=== PATIENT | male | born 1975 | race Caucasian/White ===

== ENCOUNTER 2017-04-13 13:22 | Inpatient (IN) | payer BC ==
[~2017-04-13] VITALS: Ht 188 cm; Wt 95.4 kg
[~2017-04-13 13:22] MED LIST: ASPI81TA28 PO; DOXY100C2 PO; GLC/500 PO; GLIM2TAB2 PO; LOSA1TAB38 PO
[2017-04-13 13:38] VITALS: BMI 27.0
[2017-04-13] MEDS ORDERED: SODIUM CHLORIDE 0.9% 500ML 500 ML IV ONE (13:50)
--- NOTE | 2017-04-13 13:54 | Endo History and Physical ---
History & Physical Date of Service: Apr 13, 2017. Chief Complaint: Referring Physician: History of Present Illness melena Past Surgical History Hx Cardiac Surgery: No Hx Internal Defibrillator: No Hx Pacemaker: No Hx Abdominal Surgery: No Hx of Implantable Prosthesis: No Hx Post-Op Nausea and Vomiting: No Hx Cancer Surgery: No Hx Thoracic Surgery: No Hx Orthopedic: No Hx Urinary Tract Surgery: No Family History None Social History Smoking Status: Never Smoker Hx Substance Use: No Hx Alcohol Use: No Allergies Coded Allergies: No Known Allergies (Unverified , 02/26/16) Current Medications Reported Home Medications Medications Dose Route/Sig Max Daily Dose Days Date Category Vibramycin (Doxycycline Hyclate) 100 Mg Cap 100 Mg PO BID 21 02/26/16 Rx Glimepiride 2 Mg Tab 2 Mg PO DAILY 90 02/26/16 Reported Aspirin Ec (Aspirin) 81 Mg Tab 81 Mg PO DAILY 02/26/16 Reported Cozaar (Losartan Potassium) 100 Mg Tab 100 Mg PO DAILY 02/26/16 Reported Glucophage (Metformin Hcl) 500 Mg Tab 500 Mg PO BID 02/26/16 Reported Vital Signs Weight (Kilograms): 97 Height (Feet): 6 Height (Inches): 2 Physical Exam General Appearance: WD/WN, no apparent distress Respiratory/Chest: Auscultation: breath sounds normal Cardiovascular: Heart Auscultation: RRR Abdomen: Bowel Sounds: normal Inspection & Palpation: soft, non-distended, no tenderness, guarding & rebound Assessment and Plan EGD/ possible bx/treatment of bleeding
[2017-04-13] MEDS ORDERED: PRLSR20 PO (14:04)
[2017-04-13] MEDS ORDERED: MIDAZOLAM HCL 1 MG/ML 2ML VIAL ONE (14:14)
[2017-04-13] MEDS ORDERED: LIDOCAINE HCL 2% 2 ML VIAL (20MG/ML) ONE (14:14)
[2017-04-13] MEDS ORDERED: PROPOFOL IV EMULSION 10 MG/ML 20 ML VIAL IV ONE (14:14)
--- NOTE | 2017-04-13 14:47 | Discharge Instructions ---
Endoscopy Patient Instructions Date / Procedure(s) Performed Apr 13, 2017. EGD Allergy Information Coded Allergies: No Known Allergies (Unverified , 02/26/16) Discharge Date / Findings Apr 13, 2017. portal HTN with muld portal gastrpoathy. erosive esophagitis in varius points in esophagus. Grade 1 varices esophgeeal Medication Instructions Stopped Medication(s): metformin Restart Stopped Medication(s): Reported Home Medications Medications Dose Route/Sig Max Daily Dose Days Date Category Prilosec (Omeprazole) 20 Mg Capcr 20 Mg PO DAILY 04/13/17 Reported Vibramycin (Doxycycline Hyclate) 100 Mg Cap 100 Mg PO BID 02/26/16 Rx Glimepiride 2 Mg Tab 2 Mg PO DAILY 02/26/16 Reported Aspirin Ec (Aspirin) 81 Mg Tab 81 Mg PO DAILY 02/26/16 Reported Cozaar (Losartan Potassium) 100 Mg Tab 100 Mg PO DAILY 02/26/16 Reported Glucophage (Metformin Hcl) 500 Mg Tab 500 Mg PO BID 02/26/16 Reported admit pt octreotide gtt tentative repeat of EGD +/- colon tomorrow Reported Home Medications Medications Dose Route/Sig Max Daily Dose Days Date Category Prilosec (Omeprazole) 20 Mg Capcr 20 Mg PO DAILY 04/13/17 Reported Vibramycin (Doxycycline Hyclate) 100 Mg Cap 100 Mg PO BID 02/26/16 Rx Glimepiride 2 Mg Tab 2 Mg PO DAILY 02/26/16 Reported Aspirin Ec (Aspirin) 81 Mg Tab 81 Mg PO DAILY 02/26/16 Reported Cozaar (Losartan Potassium) 100 Mg Tab 100 Mg PO DAILY 02/26/16 Reported Glucophage (Metformin Hcl) 500 Mg Tab 500 Mg PO BID 02/26/16 Reported Provider Instructions Activity Restrictions - No exercising or heavy lifting for 24 hours. - Do not drink alcohol the day of the procedure. - Do not drive a car or operate machinery until the day after the procedure. - Do not make any important decisions or sign important papers in 24 hours after the procedure. Following Day: - Return to full activity which may include returning to work/school. Diet Start your diet with liquids and light foods (jello, soup, juice, toast). Then eat your usual diet if not nauseated. Treatment For Common After Affects For mild abdominal pain, bloating, or excessive gas: - Rest - Eat lightly - Lie on right side Follow-Up Information Follow-up with Dr. Rosey Hu MD as scheduled Anesthesia Information What You Should Know You have had a procedure that required some medicine to reduce anxiety and discomfort. This treatment is called moderate sedation. After receiving the treatment, you may be sleepy, but you will be able to breathe on your own. The effects of the treatment may last for several hours. Follow these instructions along with Activity/Diet recommendations noted above: * Do NOT do anything where dizziness or clumsiness would be dangerous. * Rest quietly at home today, then you can be up and about tomorrow. * Have a responsible person stay with you the rest of today. * You may have had an I.V. today. If so, you may take the dressing off later today. Recommendations Call your doctor if: * Trouble breathing * Continuous vomiting for more than 24 hours * Temperature above 101 degrees * Severe abdominal pain or bloating * Pain not relieved by pain medicine ordered * There is increased drainage or redness from any incision * A large amount of rectal bleeding greater than 2-3 tablespoons. (If you had a polyp/s removed or have hemorrhoids, a small amount of blood - from the rectum is to be expected.) * You have any unanswered questions or concerns. IN THE EVENT OF A SERIOUS EMERGENCY, GO TO THE NEAREST EMERGENCY ROOM Your discharge instructions were prepared by provider Ariel Grigsby. Patient Instructions Signature Page Rich Mohamud Patient (or Guardian) Signature/Date: I have read and understand the instructions given to me by my caregivers. Caregiver/RN/Doctor Signature/Date: The above-named patient and/or guardian has received patient instructions on this date. + Original Patient Signature Page (only) stays with chart. Please make copy for patient.
[2017-04-13] MEDS ORDERED: OCTREOTIDE IV BOLUS & DRIP IV STA (14:52)
[2017-04-13] MEDS ORDERED: PANTOprazole INJ 40 MG in SYRINGE 0 ML IV SCH (15:00)
[2017-04-13] MEDS ORDERED: ONDANSETRON INJ 2 MG/ML 2 ML VIAL IV PRN (15:00)
[2017-04-13] MEDS ORDERED: GLUCOSE 40% GEL 15 GM TUBE PO PRN (15:15)
[2017-04-13] MEDS ORDERED: GLUCOSE 10 TABS/TUBE PO PRN (15:15)
[2017-04-13] MEDS ORDERED: DEXTROSE 50% 50 ML SYR IV PRN (15:15)
[2017-04-13] MEDS ORDERED: OCTREOTIDE ACETATE INJ 100 MCG in SYR 9 ML PHA PREPARED IV SCH (15:15)
[2017-04-13] MEDS ORDERED: GLUCAGON FOR INJ 1 MG VIAL SQ PRN (15:15)
--- NOTE | 2017-04-13 15:18 | Anesthesiology Progress Note ---
Anesthesia Post Op Note Date & Time Apr 13, 2017 at 15:18 Vital Signs Pain Intensity: 0 Vital Signs Past 12 Hours Date Time Temp Pulse Resp B/P (MAP) Pulse Ox O2 Delivery O2 Flow Rate FiO2 04/13/17 15:10 76 20 140/92 (108) 95 Room Air 04/13/17 14:55 78 18 130/72 (91) 100 Room Air 04/13/17 14:35 75 14 135/85 (102) 98 Room Air 04/13/17 13:56 36.9 77 20 135/85 (102) 98 Room Air Notes Mental Status: alert / awake / arousable, participated in evaluation Pt Amnestic to Procedure: Yes Nausea / Vomiting: adequately controlled Pain: adequately controlled Airway Patency, RR, SpO2: stable & adequate BP & HR: stable & adequate Hydration State: stable & adequate Anesthetic Complications: no major complications apparent
--- NOTE | 2017-04-13 15:26 | GI REPORT ---
Procedure Date: 04/13/2017 2:06 PM Procedure: Upper GI endoscopy Indications: Melena Medicines: Propofol per Anesthesia Complications: No immediate complications. Estimated Blood Loss: Estimated blood loss: none. Procedure: Pre-Anesthesia Assessment: - Prior to the procedure, a History and Physical was performed, and patient medications and allergies were reviewed. The patient's tolerance of previous anesthesia was also reviewed. The risks and benefits of the procedure and the sedation options and risks were discussed with the patient. All questions were answered, and informed consent was obtained. Prior Anticoagulants: The patient has taken no previous anticoagulant or antiplatelet agents. ASA Grade Assessment: III - A patient with severe systemic disease. After reviewing the risks and benefits, the patient was deemed in satisfactory condition to undergo the procedure. After obtaining informed consent, the endoscope was passed under direct vision. Throughout the procedure, the patient's blood pressure, pulse, and oxygen saturations were monitored continuously. The scope was introduced through the mouth, and advanced to the third part of duodenum. The upper GI endoscopy was accomplished without difficulty. The patient tolerated the procedure well. Findings: LA Grade C (one or more mucosal breaks continuous between tops of 2 or more mucosal folds, less than 75% circumference) esophagitis with no bleeding was found 36 to 40 cm from the incisors. Diffuse spontaneous mucosal sclerosis was found in the middle third of the esophagus and in the lower third of the esophagus. Three columns of non-bleeding grade I varices were found in the middle third of the esophagus and in the lower third of the esophagus, 36 to 40 cm from the incisors. They were 3 mm in largest diameter. with peptic appearing superficial ulcers scattered throughout lower esophagus. were evident. Mild portal hypertensive gastropathy was found in the gastric fundus and in the gastric body. The exam of the stomach was otherwise normal. The examined duodenum was normal. The cardia and gastric fundus were normal on retroflexion. Retained gastric contents are not identified on this exam. Impression: - LA Grade C reflux esophagitis. - Post-sclerotherapy appearance in the middle third of the esophagus and in the lower third of the esophagus. - Non-bleeding grade I esophageal varices. - Portal hypertensive gastropathy. - Normal examined duodenum. - No specimens collected. Recommendation: - Admit the patient to hospital [facility] for ongoing care. - Case d/w Dr Warner. Will need US and portal dopplers; chronic liver disease markers, PPI IV and octreotide ggt. tentative repeat EGD tomorrow for banding. MD Ariel Cannon MD 04/13/2017 3:26:09 PM This report has been signed electronically. Note Initiated On: 04/13/2017 2:06 PM I attest to the content of the Intraoperative Record and orders documented therein, exceptions below
--- NOTE | 2017-04-13 15:32 | History and Physical ---
History & Physical Date of Service Apr 13, 2017. History & Physical upper gi bleeding, esophageal varices, Portal hypertensive , DM, HTN, [id number]
[2017-04-13] MEDS: INSULIN ASPART 100 UNITS/ML 3 ML PEN SC SCH ×2 (16:00→21:00)
--- NOTE | 2017-04-13 16:03 | HISTORY & PHYSICAL EXAMINATION ---
DATE OF ADMISSION: 04/13/2017 This is a level 3 inpatient admission, 35 minutes. CHIEF COMPLAINT: GI bleeding, possible varices after EGD. HISTORY OF PRESENT ILLNESS: The patient is a 41-year-old white male with a significant past medical history of diabetic, fatty liver, hypertension, left lower quadrant abdominal pain coming to Dr. Grigsby's service had an EGD done. After the procedure, Dr. Grigsby called me regarding possible admission of him. In the EGD, per report there is: LA Grade C reflux esophagitis. Post-sclerotherapy appearance in the middle third of the esophagus and in the lower third of the esophagus., Non-bleeding grade I esophageal varices, and Portal hypertensive gastropathy. Patient needs PPI IV and octreotide ggt. Dr. Grigsby recommended admission, follow up H&H and possible need for further evaluation of liver functions and portal hypertension and need to take care of the possible varices, bleeding, and need repeat EGD tomorrow for banding. When I see the patient, he is pleasant, awake, alert and orientated, confirmed me the past medical history such as diabetic not on insulin, hypertension. Currently, the patient does not have any complaints. Denied nausea, vomiting. Denied abdominal pain, diarrhea, or constipation. Denied dysuria, urgency, frequencies. Denied chest pain, palpitation, lower extremity swelling. Denied facial droop, slurry speeches or local weakness. The patient did report has tarry stools for 2-3 days. Denied any history of GERD, ulcerative bleeding disease. Denied using any NSAID. Denied alcohol abuse disorder. ALLERGIES: No known drug allergies. PAST MEDICAL HISTORY: Include diabetic, fatty liver, hypertension. SOCIAL HISTORY: Denied tobacco abuse disorder, denied alcohol abuse disorder, denied illicit drug use. FAMILY HISTORY: Father has diverticulitis, other was not remarkable. REVIEW OF SYSTEMS: Please see HPI, otherwise 14 points organ system review are negative. MEDICATIONS TAKING AT HOME: Which include aspirin 81 mg p.o. daily, doxycycline 100 mg p.o. b.i.d. for 21 days, glimepiride 2 mg p.o. daily, Losartan 100 mg p.o. daily, metformin 500 mg p.o. b.i.d., omeprazole 20 mg p.o. daily. PHYSICAL EXAMINATION: VITAL SIGNS: Temperature is 36.9, pulse 76 and regular rate, respiration rate 20, blood pressure 140/92, pulse ox was 95% on room air. GENERAL: The patient is a white male, awake, alert and orientated, conversational, follows all commands. HEAD: Normocephalic. EYES: Pupils equal, round responds to light. MOUTH: Conjunctivae no injection. Sclerae nonicterus. Mild dry mucous membranes. HEART: Regular rhythm. S1, S2. LUNGS: Decreased breathing sounds. There was no wheezing, rhonchi or crackles. ABDOMEN: Soft, nontender. Bowel sound was positive. There was no organomegaly. GENITOURINARY AND RECTAL: Bilateral CVA was nontender. BILATERAL LOWER EXTREMITIES: No swelling. Homans sign was negative. Calf was nontender. SKIN: Has no rashes. LABORATORY DATA: There is no new lab but recent lab include February 2016 some labs, WBC 8.6, hemoglobin 15, platelet 108. Sodium 136, blood glucose up to 358, total bilirubin 1.5, AST 39, ALT 105. Albumin 3.9. History of Lyme disease IgG positive. Like I mentioned, today's new lab is pending. ASSESSMENT AND PLAN: A 41-year-old white male with the conditions below: 1. Possible upper GI bleeding with varices and portal hypertension associated with abnormal liver function test. 2. History of diabetic noninsulin dependent. 3. Hypertension. 4. Discussed with Dr. Grigsby about the care plan. Will be admitted to the hospital, tele monitor, H&H q. 8 hour, if hemoglobin less than 8 grams will do the blood transfusion. Start a PPI one dose now and 40 mg IV q. 12 hours, and start octreotide bolus and drip. Dr. Grigsby will continue to order some markers for liver disease and to find out any abnormal liver function test related to cause the portal hypertension and varices. We will keep n.p.o., start IV fluid, GI prophylaxis is covered. DVT prophylaxis will be SCD, no heparin product because of GI bleeding and history of thrombocytopenia. 4. Other medical conditions include diabetic, hypertension. Will continue home medication, check hemoglobin A1c, start insulin sliding scale, hold the metformin. 5. Discussed with Dr. Grigsby and patient about the condition and care plan and answered all their questions. LIANNA
[2017-04-13 16:37] VITALS: BP 133/79; PULSE 74; TEMP 36.5; O2SAT 100; BMI 26.9
[2017-04-13 17:10] LABS: HEMATOCRIT 33.1 % (42-52); MEAN CELL VOLUME 86.9 fL (80-100); MEAN CORPUSCULAR HEMOGLOBIN 29.1 pg (25-34); MEAN CORPUSCULAR HGB CONC 33.5 g/dl (32-36); RED BLOOD COUNT 3.81 M/uL (4.7-6.1)
[2017-04-13 17:21] LABS: MEAN PLATELET VOLUME 12.6 fL (7.4-10.4); PLATELET COUNT 69 K/uL (130-400)
[2017-04-13 17:22] LABS: BUN/CREATININE RATIO 18.4 (10-20); CALCIUM 8.7 mg/dl (8.5-10.1); CREATININE 0.66 mg/dl (0.60-1.40); MAGNESIUM 1.9 mg/dl (1.8-2.4); PHOSPHORUS 3.6 mg/dl (2.5-4.9); POTASSIUM 4.1 mmol/L (3.5-5.1)
[2017-04-13 17:41] LABS: BASO % 0.4 %; BASO ABS # 0.02 K/uL (0-0.2); COMPLETE YES; EOS % 3.8 %; IG% 0.4 %; LYMPH ABS # 1.61 K/uL (1.2-3.4); NEUT % 55.4 %; PLT ESTIMATE DECREASED
[2017-04-13] MEDS: OCTREOTIDE ACETATE INJ 500 MCG in NSS 100ML IV SCH (17:51)
[2017-04-13] MEDS: PANTOprazole INJ 40 MG in SYRINGE 0 ML IV SCH (20:54)
[2017-04-13 21:06] VITALS: BP 149/77; PULSE 73; TEMP 36.9; O2SAT 98
[2017-04-13 22:16] LABS: HEMATOCRIT 33.2 % (42-52)
[2017-04-13 23:45] VITALS: BP 132/73; PULSE 76; TEMP 36.8; O2SAT 97
[2017-04-14] VITALS (8 sets, daily range): BP systolic 101–139; BP diastolic 62–74; PULSE 68–73; TEMP 36.5–37.1; O2SAT 95–97; BMI 26.8
[2017-04-14] MEDS: OCTREOTIDE ACETATE INJ 500 MCG in NSS 100ML IV SCH ×3 (01:44→21:50)
[2017-04-14 03:06] LABS: INR 1.1 (0.9-1.1); PROTHROMBIN TIME (PATIENT) 11.1 SECONDS (9.0-12.0)
[2017-04-14 03:25] LABS: FERRITIN 85.7 ng/ml (8.0-388.0)
--- NOTE | 2017-04-14 03:41 | GASTROINTESTINAL CONSULTATION ---
DATE OF CONSULTATION: 04/13/2017 CHIEF COMPLAINT: Melena, portal hypertension. HISTORY OF PRESENT ILLNESS: Mr. Mohamud is a 41-year-old white male with a history of poorly controlled diabetes, chronic liver enzyme elevations and imaging studies that suggested a cirrhotic appearing liver. The patient had experienced melena and extremely dark stools over the past few days, had seen his primary care provider at [facility] and was referred for an expedited upper endoscopy. I performed an upper endoscopy today and at that time the patient had evidence of several potential bleeding sources including multiple superficial ulcerations in the lower half of the esophagus, evidence of portal hypertension with esophageal varices, although no clear stigmata of a portal bleed was identified, and evidence of mild portal gastropathy in the proximal half of the stomach. There were no obvious gastric ulcers or duodenal ulcers noted. Because of these new findings and the features of portal hypertension that is a new diagnosis for the patient, I recommended admission and spoke with Dr. Warner from the hospitalist service. PAST MEDICAL HISTORY: The patient has a history of diabetes, hypertension. He also has chronic GERD for which he is taking PPIs over many months. PAST SURGICAL HISTORY: He reports no previous significant surgeries. The patient reported that he had a colonoscopy earlier by Dr. Alonso as an outpatient which was unrevealing. FAMILY HISTORY: Noncontributory. SOCIAL HISTORY: The patient denies tobacco or alcohol use. He is . HOME MEDICATIONS: Aspirin, doxycycline, glimepiride, losartan, metformin, omeprazole 20 mg daily. ALLERGIES: He has no known drug allergies. REVIEW OF SYSTEMS: Otherwise noncontributory based on 13-point exam except for mentioned above. The patient denies any bright red blood per rectum, hematemesis, coffee-ground emesis, nausea or vomiting. There were no abdominal pain associated with this onset of melena. He has no prior history of peptic ulcer disease. PHYSICAL EXAMINATION: VITAL SIGNS: Today, the patient is afebrile at 36.9, blood pressure 140/92, 76 heart rate, respirations 20, 95% on room air. GENERAL: The patient is awake, alert and oriented x3. Post-procedure. HEENT: Normocephalic, atraumatic. Sclerae are anicteric, conjunctiva moist. Oral mucosa moist. NECK: There is normal range of motion all extremities. No focal neurologic defects. There is no cervical or supraclavicular adenopathy. I do not appreciate thyromegaly. HEART: Normal S1, S2. LUNGS: Clear to auscultation. ABDOMEN: Soft, flat, nontender, nondistended with normal bowel sounds. There is no rebound or guarding. There is no evidence caput. I do not appreciate hepatic bruits. EXTREMITIES: Without clubbing, cyanosis or edema. RECTAL: Deferred at this time. LABORATORY STUDIES: On admission include a hemoglobin of 11.1, white count 5.2, platelets 69,000. Serum chemistry, BUN and creatinine are 12 and 0.6, potassium 4.1, glucose 139, phosphorus 3.6, magnesium 1.9. IMAGING STUDY: None at the present time; however, review of prior imaging from February 2016 suggest evidence of gallstones and normal bile duct and early cirrhotic changes of the liver. There is mild splenomegaly with degenerative changes in the thoracolumbar spine. IMPRESSION AND PLAN: The patient with newly diagnosed portal hypertension with evidence of mucosal changes in esophagus that appeared to be more reflective of peptic related erosions and superficial ulcers in the esophagus as opposed to stigmata of bleeding from a portal hypertensive source. Red omar were not identified. However, given these new changes, I believe it is prudent to continue with the octreotide drip as previously discussed, IV PPI therapy with plans to repeat endoscopy tomorrow for banding. In addition, we would obtain a portal Doppler study to exclude portal vein thrombosis, abdominal ultrasound and will recommend a variety of chronic markers for liver disease, although presumably this has represented fatty liver. These would include chronic viral markers, ceruloplasmin, iron studies, alpha 1 antitrypsin, ferritin level, percent saturation, autoimmune markers and alpha fetoprotein for hepatoma screening. Introduction of beta blockers for portal hypertensive bleeding is prudent, can start with either a nonselective beta katie or carvedilol. In addition we will obtain lipid studies to exclude hypercholesterolemia. However, it may be advantageous for the patient, in addition to good glycemic control, I consider initiating statin therapies as this may impact his cirrhotic disease in a favorable fashion. We will follow with you. We will keep the patient n.p.o. after midnight and clear liquid diet this evening. All questions answered for the patient. Thank you for allowing me to participate in this patient's care. LIANNA
[2017-04-14] MEDS: PANTOprazole INJ 40 MG in SYRINGE 0 ML IV SCH ×2 (08:57→20:38)
[2017-04-14] MEDS: INSULIN ASPART 100 UNITS/ML 3 ML PEN SC SCH ×4 (09:00→20:38)
--- NOTE | 2017-04-14 09:12 | DIAGNOSTIC IMAGING REPORT ---
ULTRASOUND DUPLEX STUDY OF THE PORTAL AND HEPATIC VEINS. CLINICAL HISTORY: Portal hypertension. Cirrhosis. COMPARISON STUDY: CT scan dated 02/26/2016 FINDINGS: Color flow and spectral waveforms were performed of the portal and hepatic, and splenic veins. The veins are patent with normal directional flow. IMPRESSION: 1. No evidence of portal or hepatic vein thrombosis. 2. Normal directional flow within the portal vein. Electronically signed by: Lambert Fonseca M.D. 04/14/2017 9:11 AM Dictated Date/Time: 04/14/2017 9:10 AM
--- NOTE | 2017-04-14 09:17 | DIAGNOSTIC IMAGING REPORT ---
ABDOMEN COMPLETE (US) CLINICAL HISTORY: 41 years-old Male with fatty liver with varicis assess for PV thrombosis; ascites. COMPARISON: 02/26/2016 TECHNIQUE: Multiple real time sonographic images of the abdomen were obtained assessing musa-scale appearance. FINDINGS: PANCREAS: The pancreas is partially obscured by bowel gas. The visualized portions of the pancreas are normal without focal lesion or pancreatic duct dilatation. LIVER: The liver demonstrates heterogeneous coarsened echogenicity with suggestion of mild marginal nodularity. There is no intrahepatic bile duct dilation, focal lesion, or contour nodularity. There is no ascites. GALLBLADDER: Cholelithiasis without wall thickening, or pericholecystic fluid. Gallstone within the gallbladder neck measures up to 1.3 cm. The common bile duct measures 0.5 cm. RIGHT KIDNEY: The right kidney measures 12.6 cm. The parenchymal echotexture and cortical thickness are normal. No nephrolithiasis or hydronephrosis. LEFT KIDNEY: The left kidney measures 13.6 cm. The parenchymal echotexture and cortical thickness are normal. No nephrolithiasis or hydronephrosis. SPLEEN: The spleen measures 21.2 cm and is normal in echotexture, previously 20 cm on study dated 02/26/2016. No focal lesions are identified. VASCULATURE: The visualized aorta and inferior vena cava are sub-visualized although appear normal as seen. IMPRESSION: 1. Heterogeneous coarsened appearance of the hepatic parenchyma is again seen with mild marginal nodularity suggesting early cirrhotic liver disease. No ascites identified. 2. Cholelithiasis without sonographic evidence of acute cholecystitis. 3. No biliary ductal dilation. 4. Splenomegaly appears similar from study dated 02/26/2016. The above report was generated using voice recognition software. It may contain grammatical, syntax or spelling errors. Electronically signed by: Karlo Garcia M.D. 04/14/2017 9:15 AM Dictated Date/Time: 04/14/2017 9:10 AM
--- NOTE | 2017-04-14 09:28 | Hospitalist Progress Note ---
Hospitalist Progress Note Date of Service Apr 14, 2017. (Tracey Reece PA-C) Subjective Pt evaluation today including: conversation w/ patient, physical exam, chart review, lab review, review of studies, review of inpatient medication list Pain: None PO Intake: NPO for endoscopy Voiding: no voiding problems The patient was seen and examined this morning. Pt reports doing well. He denies abdominal pain, n/v/d/c. Last melanotic BM was yesterday, denies any BRBPR. Pt denies dizziness or lightheadedness, cp, sob, ulloa. Hepatitis panel in process: Pt denies any hx of IVDA, homosexual relations, etoh abuse or tobacco abuse. Reports that he may drink 1-2 beers per month at [place]. Family Hx of father having GI issues, brother with GERD. Denies family hx of liver issues. Plan for EGD repeat today ROS: 6 point ROS reviewed and otherwise negative. (Tracey Reece PA-C) Objective Vital Signs Date Time Temp Pulse Resp B/P (MAP) Pulse Ox O2 Delivery O2 Flow Rate FiO2 04/14/17 08:00 Room Air 04/14/17 07:54 36.8 73 16 123/74 (90) 95 Room Air 04/14/17 04:00 Room Air 04/14/17 03:45 37.0 73 18 139/72 (94) 96 Room Air 04/14/17 00:01 Room Air 04/13/17 23:45 36.8 76 18 132/73 (92) 97 Room Air 04/13/17 21:06 36.9 73 18 149/77 (101) 98 Room Air 04/13/17 20:00 Room Air 04/13/17 16:37 36.5 74 18 133/79 100 Room Air 04/13/17 15:10 76 20 140/92 (108) 95 Room Air 04/13/17 14:55 78 18 130/72 (91) 100 Room Air 04/13/17 14:35 75 14 135/85 (102) 98 Room Air 04/13/17 13:56 36.9 77 20 135/85 (102) 98 Room Air (Tracey Reece PA-C) Physical Exam General Appearance: WD/WN, no apparent distress Eyes: PERRL, EOMI ENT: hearing grossly normal, pharynx normal Neck: supple, no JVD Respiratory/Chest: lungs clear, no respiratory distress, no accessory muscle use Cardiovascular: regular rate, rhythm, no murmur Abdomen: normal bowel sounds, non tender, soft, no organomegaly Extremities: non-tender, no pedal edema, no calf tenderness Neurologic/Psychiatric: alert, normal mood/affect, oriented x 3 Skin: normal color, warm/dry (Tracey Reece, JERAMY) Laboratory Results Last 24 Hours Test 04/13/17 16:49 04/13/17 17:55 04/13/17 20:51 04/13/17 22:00 White Blood Count 5.20 K/uL Red Blood Count 3.81 M/uL Hemoglobin 11.1 g/dL 11.3 g/dL Hematocrit 33.1 % 33.2 % Mean Corpuscular Volume 86.9 fL Mean Corpuscular Hemoglobin 29.1 pg Mean Corpuscular Hemoglobin Concent 33.5 g/dl Platelet Count 69 K/uL Mean Platelet Volume 12.6 fL Neutrophils (%) (Auto) 55.4 % Lymphocytes (%) (Auto) 31.0 % Monocytes (%) (Auto) 9.0 % Eosinophils (%) (Auto) 3.8 % Basophils (%) (Auto) 0.4 % Neutrophils # (Auto) 2.88 K/uL Lymphocytes # (Auto) 1.61 K/uL Monocytes # (Auto) 0.47 K/uL Eosinophils # (Auto) 0.20 K/uL Basophils # (Auto) 0.02 K/uL RDW Standard Deviation 42.9 fL RDW Coefficient of Variation 13.8 % Immature Granulocyte % (Auto) 0.4 % Immature Granulocyte # (Auto) 0.02 K/uL Platelet Estimate DECREASED Red Blood Cell Morphology Unremarkable Prothrombin Time 11.1 SECONDS Prothromb Time International Ratio 1.1 Sodium Level 138 mmol/L Potassium Level 4.1 mmol/L Chloride Level 105 mmol/L Carbon Dioxide Level 28 mmol/L Anion Gap 4.0 mmol/L Blood Urea Nitrogen 12 mg/dl Creatinine 0.66 mg/dl Est Creatinine Clear Calc Drug Dose 173.1 ml/min Estimated GFR () 140.2 Estimated GFR (Non- 120.9 BUN/Creatinine Ratio 18.4 Random Glucose 139 mg/dl Calcium Level 8.7 mg/dl Phosphorus Level 3.6 mg/dl Magnesium Level 1.9 mg/dl Iron Level 43 mcg/dl Total Iron Binding Capacity 287 mcg/dl Ferritin 85.7 ng/ml Bedside Glucose 125 mg/dl 164 mg/dl Test 04/14/17 06:53 04/14/17 07:06 04/14/17 07:17 Bedside Glucose 234 mg/dl (Tracey Reece PA-C) Assessment and Plan This is a 41 yo M with PMHx of DM II, HTN, GERD, new found cirrhotic appearing liver with elevated LFTs S/p EGD in the setting of portal gastropathy, Esophageal varices - Initially had melena x 3 days starting around 04/11 and was referred by PCP to expedited upper endoscopy with Dr. Grigsby. - s/p EGD on 04/13: showing Grade C reflux esophagitis, post-sclerotic appearance in the mid & lower third of the esophagus and nonbleeding esophageal varices, and mild portal hypertensive gastropathy. - Continue on octreotide gtt & protonix IV BID - Planned repeat EGD today by Dr. Grigsby for banding - Follow LFTs and H&H - in process - Hepatitis panel in process - Denies tobacco or etoh abuse, homosexual relations or IVDA hx GERD - Continue PPI DM II - Check A1C - ISS with accuchecks ACHS - Hold glimepiride and metformin HTN - Hold losartan 100 mg QAM - BP appears to be stable in 120s- 130s. DVT ppx: Teds, chemical anticoagulation contraindicated CODE STATUS: FULL CODE Disposition: From home, lives with , no CM needs anticipated. (Tracey Reece PA-C) RALF Physician Supervision Note: I interviewed and examined the patient. Discussed with Tracey Reece PAC and agree with findings and plan as documented in the note. Any exceptions or clarifications are listed here: None Patient presented from Dr. moreno office after outpatient EGD showing varices with's active bleeding. The patient had a repeat endoscopy today with banding of his varices and recommendations for twice a day Protonix, octreotide drip, consideration of beta katie therapy. The patient's blood counts have been stable. Does procedure his vital signs show slightly low blood pressure which may limit our use of beta katie therapy. Exact etiology of his cirrhosis is unknown at this time to me we'll converse more with Dr. mike Werner for the patient is also currently being worked up asked He is awake alert appropriate he is hungry but will be on a clear liquid diet his abdomen is without pain Documented By: Errol Dickey (Errol Dickey M.D.)
[2017-04-14 10:34] LABS: HEMATOCRIT 33.9 % (42-52); MEAN CELL VOLUME 86.7 fL (80-100); MEAN CORPUSCULAR HEMOGLOBIN 29.7 pg (25-34); MEAN CORPUSCULAR HGB CONC 34.2 g/dl (32-36); MEAN PLATELET VOLUME 12.6 fL (7.4-10.4); PLATELET COUNT 66 K/uL (130-400); RED BLOOD COUNT 3.91 M/uL (4.7-6.1); WHITE BLOOD COUNT 3.81 K/uL (4.8-10.8)
[2017-04-14 10:41] LABS: BUN/CREATININE RATIO 17.3 (10-20); CALCIUM 8.6 mg/dl (8.5-10.1); CREATININE 0.74 mg/dl (0.60-1.40); MAGNESIUM 1.9 mg/dl (1.8-2.4); POTASSIUM 3.8 mmol/L (3.5-5.1)
[2017-04-14 10:46] LABS: HEPATITIS B AB NEG
[2017-04-14 10:49] LABS: CHOLESTEROL/HDL RATIO 4.6; PHOSPHORUS 2.9 mg/dl (2.5-4.9)
[2017-04-14 10:54] LABS: ESTIMATED AVERAGE GLUCOSE 237 mg/dl; HA1C FLAG Normal (Normal)
[2017-04-14 11:07] LABS: BASO % 0.5 %; BASO ABS # 0.02 K/uL (0-0.2); COMPLETE YES; EOS % 3.1 %; IG% 0.3 %; LYMPH % 28.6 %; LYMPH ABS # 1.09 K/uL (1.2-3.4); MONO % 6.8 %; NEUT % 60.7 %
[2017-04-14] MEDS ORDERED: LIDOCAINE HCL 2% 2 ML VIAL (20MG/ML) ONE (12:22)
[2017-04-14] MEDS ORDERED: PROPOFOL IV EMULSION 10 MG/ML 20 ML VIAL IV ONE ×2 (12:22→13:39)
[2017-04-14] MEDS ORDERED: MIDAZOLAM HCL 1 MG/ML 2ML VIAL ONE (12:23)
--- NOTE | 2017-04-14 12:34 | History & Physical Bridge Note ---
H&P Re-Evaluation Bridge Note: I have examined the patient, reviewed the History & Physical and in the interval since the performance of the History & Physical I have noted the following changes of clinical significance: No changes noted EGD with banding
[2017-04-14] MEDS ORDERED: FENTANYL CITRATE INJ 50 MCG/1 ML 2 ML VIAL ONE (12:47)
--- NOTE | 2017-04-14 13:54 | GI REPORT ---
Procedure Date: 04/14/2017 12:46 PM Procedure: Upper GI endoscopy Indications: For therapy of esophageal varices Medicines: Propofol per Anesthesia Complications: No immediate complications. Estimated blood loss: Minimal. Estimated Blood Loss: Estimated blood loss was minimal. Procedure: Pre-Anesthesia Assessment: - Prior to the procedure, a History and Physical was performed, and patient medications and allergies were reviewed. The patient's tolerance of previous anesthesia was also reviewed. The risks and benefits of the procedure and the sedation options and risks were discussed with the patient. All questions were answered, and informed consent was obtained. Prior Anticoagulants: The patient has taken no previous anticoagulant or antiplatelet agents. ASA Grade Assessment: II - A patient with mild systemic disease. After reviewing the risks and benefits, the patient was deemed in satisfactory condition to undergo the procedure. After obtaining informed consent, the endoscope was passed under direct vision. Throughout the procedure, the patient's blood pressure, pulse, and oxygen saturations were monitored continuously. The Scope was introduced through the mouth, and advanced to the second part of duodenum. The upper GI endoscopy was technically difficult and complex due to an endoscope malfunction. Successful completion of the procedure was aided by changing endoscopes. The patient tolerated the procedure well. Findings: Three columns of non-bleeding grade I varices were found in the middle third of the esophagus and in the lower third of the esophagus,. They were 5 mm in largest diameter. Stigmata of recent bleeding were evident and red bautista signs were present. One band was successfully placed with incomplete eradication of varices. There was no bleeding during, and at the end, of the procedure. Mild portal hypertensive gastropathy was found in the gastric fundus and in the gastric body. The exam of the stomach was otherwise normal. The examined duodenum was normal. The cardia and gastric fundus were normal on retroflexion. Retained gastric contents are not identified on this exam. Impression: - Recently bleeding grade I esophageal varices. Incompletely eradicated. Banded. - Portal hypertensive gastropathy. - Normal examined duodenum. - No specimens collected. - COMMENT: distal varix with stigmata of bleed( red [place]) was successfully banded. Additional attempts to band other varices distally with two separate banding devices and changing scope to improve suction would not successfully deploy. Recommendation: - Return patient to hospital [facility] for ongoing care. - Clear liquid diet today. - Use a proton pump inhibitor IV BID for 5 days. - Administer an IV bolus of 50 micrograms of octreotide followed by an infusion of 50 micrograms per hour. - Repeat the upper endoscopy in 4 weeks for retreatment. - Give a non delective beta katie with dosage titrated by the heart rate. MD Ariel Cannon MD 04/14/2017 1:54:17 PM This report has been signed electronically. Note Initiated On: 04/14/2017 12:46 PM I attest to the content of the Intraoperative Record and orders documented therein, exceptions below
--- NOTE | 2017-04-14 14:29 | Anesthesiology Progress Note ---
Anesthesia Post Op Note Date & Time Apr 14, 2017 at 14:29 Vital Signs Pain Intensity: 0 Vital Signs Past 12 Hours Date Time Temp Pulse Resp B/P (MAP) Pulse Ox O2 Delivery O2 Flow Rate FiO2 04/14/17 14:01 74 16 111/67 (82) 95 Room Air 04/14/17 13:48 70 14 94/62 (73) 94 Nasal Cannula 4 04/14/17 12:39 36.9 74 16 138/78 (98) 96 Room Air 04/14/17 12:00 Room Air 04/14/17 11:59 36.7 70 16 120/73 (89) 97 Room Air 04/14/17 08:00 Room Air 04/14/17 07:54 36.8 73 16 123/74 (90) 95 Room Air 04/14/17 04:00 Room Air 04/14/17 03:45 37.0 73 18 139/72 (94) 96 Room Air Notes Mental Status: alert / awake / arousable, participated in evaluation Pt Amnestic to Procedure: Yes Nausea / Vomiting: adequately controlled Pain: adequately controlled Airway Patency, RR, SpO2: stable & adequate BP & HR: stable & adequate Hydration State: stable & adequate Anesthetic Complications: no major complications apparent
[2017-04-14 15:48] LABS: HEMATOCRIT 32.8 % (42-52)
[2017-04-14] MEDS: PROPRANOLOL HCL 10 MG TAB PO SCH (20:39)
[2017-04-14 22:12] LABS: HEMATOCRIT 32.6 % (42-52)
[2017-04-15] VITALS (10 sets, daily range): BP systolic 122–133; BP diastolic 73–78; PULSE 65–70; TEMP 36.2–37; O2SAT 95–97; Ht 188 cm; Wt 95.4 kg
--- NOTE | 2017-04-15 07:57 | GASTROENTEROLOGY PROGRESS NOTE ---
DATE: 04/15/2017 SUBJECTIVE: I spoke with the patient following his EGD today that was intended for variceal banding. During the exam, there were 3-channeled varices noted up to the mid esophagus. In addition, there were superficial linear erosions that may also reflect a component of reflux as well as chronic changes of the mucosa that may reflect chronic esophagitis with scarring. He had never received banding in the past. There was one area distally that had what may represent a red bautista and this successfully was banded. However, additional band attempts to the apparent varices did not successfully deploy despite using 2 banding devices and switching scopes. It is possible that these represent channels that are more deeper than usual and that there may be a component of a thickened esophageal mucosa because of his chronic reflux and scarring. There was also evidence of portal gastropathy in the proximal stomach. The patient tolerated the procedure well. I reviewed the available laboratory studies which at that time showed that there was no evidence of hepatitis C antibody and that it is negative for hepatitis B surface antibody and will ultimately require vaccination for A and possibly B if the other markers do not show evidence for chronic hepatitis B infection. Other markers including KACIE, alpha-1 antitrypsin, ceruloplasmin are negative. The iron panel is showing a satisfactory iron percent saturation and therefore hemochromatosis is not suspected. His LFTs this morning show a total bilirubin of 2.3, mostly indirect fraction of 1.9. AST 59, ALT 96, alkaline phosphatase 118, albumin 3.4. The triglycerides are 264, cholesterol 142, LDL 58. Imaging studies demonstrated a heterogenous coarsened echogenicity suggesting marginal nodularity without intrahepatic bile duct dilation or focal lesions. There is no evidence of ascites. These changes are suggestive of early cirrhotic disease, presumably due to fatty liver, although markers are pending. In addition, portal Dopplers were performed, which demonstrated no evidence of portal or hepatic vein thrombosis with normal direction within the portal vein for flow. Alphafetoprotein is pending at this time. IMPRESSION AND PLAN: The patient with evidence of cirrhotic-looking liver, presumably fatty liver due to metabolic syndrome including his diabetes. The texture of the esophagus suggests that there has been chronic reflux with esophagitis and scarring and may have influenced successful band placement. I believe the best approach currently is to have the patient continue on a b.i.d. dosing of PPI to minimize any inflammation over 4 weeks and repeat upper endoscopy in 4 weeks to attempt re-attempt banding and to reassess the area in question. Further recommendations once the other markers are completed. However, if this ultimately turns to the fatty liver, in addition to good diabetes, blood pressure control, vitamin D level should be checked and we would consider initiation of a statin therapy, which may be helpful in minimizing fibrosis in the liver moving forward. We would continue currently the PPI IV for another 24 hours, and then can be converted to oral and lastly, the octreotide drip. If there is no bleeding, can be discontinued tomorrow. Use of a non-selective beta katie may also be helpful. This could be either Inderal, Corgard, or carvedilol. All questions answered for the patient.
[2017-04-15] MEDS: PROPRANOLOL HCL 10 MG TAB PO SCH ×2 (08:00→22:56)
[2017-04-15] MEDS: PANTOprazole INJ 40 MG in SYRINGE 0 ML IV SCH ×2 (08:00→22:56)
[2017-04-15] MEDS: INSULIN ASPART 100 UNITS/ML 3 ML PEN SC SCH ×4 (08:05→21:31)
[2017-04-15] MEDS: OCTREOTIDE ACETATE INJ 500 MCG in NSS 100ML IV SCH (09:04)
--- NOTE | 2017-04-15 10:24 | Hospitalist Progress Note ---
Hospitalist Progress Note Date of Service Apr 15, 2017. (Tracey Reece, JERAMY) Subjective Pt evaluation today including: conversation w/ patient, physical exam, chart review Pain: None PO Intake: Clears Voiding: no voiding problems The patient was seen and examined this morning. Pt reports doing well today, he has no acute complaints. Pt has been tolerating clears without difficulty and asking if diet can be advanced. Discussion held regarding better DM control and pt is in agreement with starting insulin at this time. Pt is aware of banding of one vessel during EGD and how other two were not able to be banded per Dr. Grigsby. He has not had a BM in 2 days at this point, denies abd pain, n/v/d, lightheadedness or dizziness. ROS: 6 point ROS reviewed and otherwise negative. (Tracey Reece, JERAMY) Objective Vital Signs Date Time Temp Pulse Resp B/P (MAP) Pulse Ox O2 Delivery O2 Flow Rate FiO2 04/15/17 08:05 Room Air 04/15/17 07:18 37.0 68 18 127/78 (94) 96 04/15/17 04:00 95 Room Air 04/15/17 03:41 37.0 70 18 128/77 (94) 95 Room Air 04/15/17 00:22 36.2 68 15 133/75 (94) 95 Room Air 04/15/17 00:01 95 Room Air 04/14/17 20:00 96 Room Air 04/14/17 19:17 37.1 73 19 130/74 (92) 96 Room Air 04/14/17 16:00 95 Room Air 04/14/17 15:08 36.5 68 20 101/62 (75) 95 Room Air 04/14/17 14:30 36.6 68 18 106/67 (80) 95 Room Air 04/14/17 14:01 74 16 111/67 (82) 95 Room Air 04/14/17 13:48 70 14 94/62 (73) 94 Nasal Cannula 4 04/14/17 12:39 36.9 74 16 138/78 (98) 96 Room Air 04/14/17 12:00 Room Air 04/14/17 11:59 36.7 70 16 120/73 (89) 97 Room Air (Tracey Reece PA-C) Physical Exam Notes: General Appearance: WD/WN, no apparent distress Eyes: PERRL, EOMI ENT: hearing grossly normal, pharynx normal Neck: supple, no JVD Respiratory/Chest: lungs clear, no respiratory distress, no accessory muscle use Cardiovascular: regular rate, rhythm, no murmur Abdomen: normal bowel sounds, non tender, soft, no organomegaly Extremities: non-tender, no pedal edema, no calf tenderness Neurologic/Psychiatric: alert, normal mood/affect, oriented x 3 Skin: normal color, warm/dry (Tracey Reece PA-C) Laboratory Results Last 24 Hours Test 04/14/17 11:43 04/14/17 15:26 04/14/17 16:04 04/14/17 19:40 Bedside Glucose 199 mg/dl 169 mg/dl 273 mg/dl Hemoglobin 11.0 g/dL Hematocrit 32.8 % Test 04/14/17 22:05 04/15/17 06:41 Hemoglobin 10.9 g/dL Hematocrit 32.6 % Bedside Glucose 201 mg/dl (Tracey Reece PA-C) Assessment and Plan This is a 41 yo M with PMHx of DM II, HTN, GERD, new found cirrhotic appearing liver with elevated LFTs S/p EGD in the setting of portal gastropathy, Esophageal varices - Initially had melena x 3 days starting around 04/11 and was referred by PCP to expedited upper endoscopy with Dr. Grigsby. - s/p EGD on 04/13: showing Grade C reflux esophagitis, post-sclerotic appearance in the mid & lower third of the esophagus and nonbleeding esophageal varices, and mild portal hypertensive gastropathy. - Continue on octreotide gtt & protonix IV BID - will await recs from Dr. Grigsby regarding stop time of octreotide gtt, possibly later today. Continue protonix 40 mg BID - Will need outpt EGD done in 4 weeks. - hgb remains stable at 10.9 - Hepatitis panel negative - Denies tobacco or etoh abuse, homosexual relations or IVDA hx GERD - Continue PPI DM II - Check A1C - ISS with accuchecks ACHS - Hold glimepiride and metformin HTN - Hold losartan 100 mg QAM - BP appears to be stable in 120s- 130s. - Discontinue upon discharge - Started on propanolol 10 mg BID and seems to be tolerating DVT ppx: Teds, chemical anticoagulation contraindicated CODE STATUS: FULL CODE Disposition: From home, lives with , no CM needs anticipated. (Tracey Reece, JERAMY) RALF Physician Supervision Note: I interviewed and examined the patient. Discussed with Tracey Reece PAC and agree with findings and plan as documented in the note. Any exceptions or clarifications are listed here: None Patient is doing well since his procedure is hemoglobin has been stable he's tolerated propranolol after we have held his losartan will likely try to reintroduce an Castillo or ARB due to renal protective effects for his diabetes. Vital signs are stable Abdomen normoactive bowel sounds soft nontender nondistended GI bleed secondary to esophagitis gastritis and esophageal varices from cirrhosis The patient has no signs or stigmata of bleeding his octreotide has been stopped will continue his IV Protonix with conversion to oral medication likely on 04/16, we will continue his propranolol and likely refer back to Dr. Perezfor outpatient management and diagnosis of the etiology of his cirrhosis Documented By: Errol Dickey (Errol Dickey M.D.)
[2017-04-15 12:00] LABS: AFP TUMOR MARKER SERUM 2.7 NG/ML (<6.1); ALPHA-1-ANTITRYPSIN TC 67710E 124 MG/DL (83-199)
--- NOTE | 2017-04-15 16:50 | Gastroenterology Progress Note ---
Progress Note Date of Service: Apr 15, 2017 Subjective Pt evaluation today including: conversation w/ patient, physical exam, chart review, lab review, review of studies, review of inpatient medication list cc f/u melena, esoph varices HPI Pt denies abd pain. States had stool this am normal color. Tolerating soft diet. Review of Systems Respiratory: No shortness of breath Cardiac: No chest pain Medications Current Inpatient Medications Medications (Trade) Dose Ordered Sig/Shahram Route Start Time Stop Time Status Last Admin Dose Admin Ondansetron HCl (Zofran Inj) 4 mg Q6H PRN IV 04/13/17 15:00 05/13/17 14:59 Pantoprazole Sodium 40 mg/ Syringe 10 ml @ 5 mls/min DAILY@ IV 04/13/17 21:00 05/13/17 20:59 04/15/17 08:00 5 MLS/MIN Insulin Aspart (novoLOG ASPART) SLIDING SCALE G... ACHS SC 04/13/17 16:00 05/13/17 15:59 04/15/17 12:13 6 UNITS Glucose (Glucose 40% Gel) 15-30 GRAMS 15 GRAMS... UD PRN PO 04/13/17 15:15 05/13/17 15:14 Glucose (Glucose Chew Tab) 4-8 Tablets 4 Tabl... UD PRN PO 04/13/17 15:15 05/13/17 15:14 Dextrose (Dextrose 50% 50ML Syringe) 25-50ML OF 50% DW IV FOR... UD PRN IV 04/13/17 15:15 05/13/17 15:14 Glucagon (Glucagon Inj) 1 mg UD PRN SQ 04/13/17 15:15 05/13/17 15:14 Propranolol HCl (Inderal Tab) 10 mg BID PO 04/14/17 21:00 05/14/17 20:59 04/15/17 08:00 10 MG Insulin Glargine (Lantus Solostar Pen) 10 units BID SC 04/15/17 21:00 05/15/17 20:59 Objective Vital Signs Date Time Temp Pulse Resp B/P (MAP) Pulse Ox O2 Delivery O2 Flow Rate FiO2 04/15/17 15:12 36.9 65 18 128/77 (94) 97 04/15/17 11:30 96 Room Air 04/15/17 10:39 37.0 68 18 96 04/15/17 08:05 Room Air 04/15/17 07:18 37.0 68 18 127/78 (94) 96 04/15/17 04:00 95 Room Air 04/15/17 03:41 37.0 70 18 128/77 (94) 95 Room Air 04/15/17 00:22 36.2 68 15 133/75 (94) 95 Room Air 04/15/17 00:01 95 Room Air 04/14/17 20:00 96 Room Air 04/14/17 19:17 37.1 73 19 130/74 (92) 96 Room Air Physical Exam General Appearance: WD/WN, no apparent distress Respiratory/Chest: lungs clear, no respiratory distress Cardiovascular: no murmur Abdomen: normal bowel sounds, non tender, soft, no organomegaly Neurologic/Psych: normal mood/affect, oriented x 3 Skin: warm/dry Laboratory Results Last 24 Hours Test 04/14/17 19:40 04/14/17 22:05 04/15/17 06:41 04/15/17 12:11 Bedside Glucose 273 mg/dl 201 mg/dl 239 mg/dl Hemoglobin 10.9 g/dL Hematocrit 32.6 % Test 04/15/17 16:03 04/15/17 16:26 Bedside Glucose 217 mg/dl Assessment and Plan melena--none at present, likely cause varices bleed vs portal gastroparhy cirrhosis--acute hep neg, AMA, KACIE neg so far, ETOH unlikely varices--propranol to help reduce portal pressure and outpt EGD in one month with DR Grigsby for banding.
[2017-04-15 16:57] LABS: HEMATOCRIT 33.1 % (42-52); MEAN CELL VOLUME 86.2 fL (80-100); MEAN CORPUSCULAR HEMOGLOBIN 29.7 pg (25-34); MEAN CORPUSCULAR HGB CONC 34.4 g/dl (32-36); MEAN PLATELET VOLUME 12.2 fL (7.4-10.4); PLATELET COUNT 64 K/uL (130-400); RED BLOOD COUNT 3.84 M/uL (4.7-6.1); WHITE BLOOD COUNT 4.32 K/uL (4.8-10.8)
[2017-04-15 17:02] LABS: BUN/CREATININE RATIO 14.4 (10-20); CALCIUM 8.1 mg/dl (8.5-10.1); CREATININE 0.7 mg/dl (0.60-1.40); POTASSIUM 3.8 mmol/L (3.5-5.1)
[2017-04-15] MEDS ORDERED: INSULIN GLARGINE SOLOSTAR 100 UNITS/ML 3 ML PEN SC SCH (21:00)
[2017-04-16 00:13] VITALS: BP 126/78; PULSE 67; TEMP 36.7; O2SAT 97
[2017-04-16 06:15] LABS: HEMATOCRIT 32.8 % (42-52); MEAN CELL VOLUME 87.2 fL (80-100); MEAN CORPUSCULAR HEMOGLOBIN 29.3 pg (25-34); MEAN CORPUSCULAR HGB CONC 33.5 g/dl (32-36); RED BLOOD COUNT 3.76 M/uL (4.7-6.1); WHITE BLOOD COUNT 4.85 K/uL (4.8-10.8)
[2017-04-16 06:21] LABS: MEAN PLATELET VOLUME 11.7 fL (7.4-10.4); PLATELET COUNT 65 K/uL (130-400)
[2017-04-16 06:49] LABS: BUN/CREATININE RATIO 13.5 (10-20); CALCIUM 8.3 mg/dl (8.5-10.1); CREATININE 0.73 mg/dl (0.60-1.40); POTASSIUM 3.7 mmol/L (3.5-5.1)
[2017-04-16 07:05] LABS: BASO % 0.2 %; BASO ABS # 0.01 K/uL (0-0.2); COMPLETE YES; EOS % 3.3 %; LYMPH % 26.8 %; MONO % 10.9 %; NEUT % 58.8 %
[2017-04-16 08:00] VITALS: O2SAT 97
[2017-04-16 08:05] VITALS: BP 122/76; PULSE 60; TEMP 36.2; O2SAT 98
[2017-04-16] MEDS ORDERED: [UNRECOGNIZED DRUG - SUPPLY] SC (08:16)
[2017-04-16] MEDS ORDERED: PRT40 PO (08:16)
[2017-04-16] MEDS ORDERED: PROP10TA7 PO (08:16)
[2017-04-16] MEDS ORDERED: LVMIPEN SC (08:16)
[2017-04-16] MEDS ORDERED: [UNRECOGNIZED DRUG - CODE] TOP (08:16)
[2017-04-16] MEDS ORDERED: FSTTS TOP (08:16)
--- NOTE | 2017-04-16 08:17 | Discharge Instructions ---
Discharge Instructions Date of Service Apr 16, 2017. Admission Reason for Admission: Gi Bleeding, Possible Varices Bleeding Discharge Discharge Diagnosis / Problem: upper gi bleed from esophageal varicies Discharge Goals Goal(s): Diagnostic testing, Therapeutic intervention Activity Recommendations Activity Limitations: as noted below Lifting Limitations: gradually increase as tolerated . Current Hospital Diet Patient's current hospital diet: Diabetes Type 2 Diet Discharge Diet Recommended Diet: Diabetes Type 2 Diet Procedures Procedures Performed: EGD WITH BANDING Pending Studies Studies pending at discharge: no Laboratory Results Hemoglobin A1c Test 04/14/17 07:06 Range/Units Estimated Average Glucose 237 mg/dl Hemoglobin A1c 9.9 H 4.5-5.6 % Lipid Panel Test 04/14/17 07:06 Range/Units Triglycerides Level 264 H 0-150 mg/dl Cholesterol Level 142 0-200 mg/dl HDL Cholesterol 31 mg/dl Cholesterol/HDL Ratio 4.6 LDL Cholesterol, Calculated 58 mg/dl Medical Emergencies . Who to Call and When: Medical Emergencies: If at any time you feel your situation is an emergency, please call 911 immediately. . Non-Emergent Contact Non-Emergency issues call your: Primary Care Provider, Wiener Packer Call Non-Emergent contact if: temperature is above 101, your pain is unusual for you . . "Provider Documentation" section prepared by Errol Dickey. . VTE Core Measure Inpt VTE Proph given/why not?: Contraindicated
[2017-04-16] MEDS: PROPRANOLOL HCL 10 MG TAB PO SCH (08:39)
[2017-04-16] MEDS: INSULIN ASPART 100 UNITS/ML 3 ML PEN SC SCH ×2 (08:45→12:30)
[2017-04-16] MEDS ORDERED: INSULIN GLARGINE SOLOSTAR 100 UNITS/ML 3 ML PEN SC SCH (09:00)
[2017-04-16] MEDS ORDERED: PANTOprazole SOD 40 MG TAB PO SCH (09:00)
[2017-04-16] MEDS ORDERED: CHOL1000 PO (10:48)
--- NOTE | 2017-04-16 11:45 | Discharge Summary ---
Discharge Summary Date of Service Apr 16, 2017. Discharge Summary Admission Date: Apr 13, 2017 at 14:51 Discharge Date: Apr 16, 2017 Discharge Disposition: Home Principal Diagnosis: upper gi bleed from esophageal varicies, s/p banding Procedures: EGD and esophageal varices banding by Dr abrams Medication Reconciliation New Medications: Blood Glucose Monitoring Suppl (D-Care Glucometer Kit/Glu W/Device) 1 Kit Kit UNIT TOP ACHS, #1 1 Refill Cholecalciferol (Vitamin D3) 1,000 Unit Tab 1 TAB PO DAILY for 30 Days, #30 TAB 5 Refills Glucostix Blood Test Strips (Onetouch Ultra Control) 1 Ea Strp UNITS TOP ACHS, #120 3 Refills Insulin Detemir (Levemir Flextouch) 100 Unit/Ml Inj 10 UNIT SC DAILY, #1 PEN 6 Refills [ultra fine] () UNITS SC ACHS, #120 6 Refills ultrafine needle to fit levimir pen Pantoprazole (Pantoprazole Sodium) 40 Mg Tab 40 MG PO BID, #120 TAB 6 Refills Propranolol (Inderal) 10 Mg Tab 10 MG PO BID, #120 TAB 6 Refills Continued Medications: Glimepiride (Glimepiride) 2 Mg Tab 2 MG PO DAILY for 90 Days, #90 TAB 3 Refills Discontinued Medications: Aspirin (Aspirin Ec) 81 Mg Tab 81 MG PO DAILY Doxycycline Hyclate (Vibramycin) 100 Mg Cap 100 MG PO BID for 21 Days, #42 CAP Losartan Potassium (Cozaar) 100 Mg Tab 100 MG PO DAILY, TAB Metformin Hcl (Glucophage) 500 Mg Tab 500 MG PO BID, TAB Omeprazole (Prilosec) 20 Mg Capcr 20 MG PO DAILY, CAP Discharge Exam Review of Systems: Constitutional: No fever, No chills Cardiovascular: No chest pain, No orthopnea, No edema Abdomen: No pain, No nausea, No vomiting, No diarrhea Genitourinary - Male: No hematuria, No dysuria Physical Exam: General Appearance: WD/WN, no apparent distress Eyes: PERRL, EOMI Neck: supple, no JVD Respiratory/Chest: chest non-tender, lungs clear, normal breath sounds Cardiovascular: regular rate, rhythm, no murmur Abdomen / GI: normal bowel sounds, non tender, soft Hospital Course Patient is doing well since his procedure is hemoglobin has been stable he's tolerated propranolol after we have held his losartan will likely consider Castillo or ARB due to renal protective effects for his diabetes as an outpt. GI bleed secondary to esophagitis gastritis and esophageal varices from cirrhosis, per GI medicine will have on bid ppi and propranolol, will have short term follow up to work thru causes for cirrhosis Vitamin D deficiency, will continue to recommend outpt vitamin D, level is only slightly low Diabetes, will stop metformin due to liver disease, remain on low dose amaryl and levimir 10U with recommended outpt follow up with diabetic ed, information on diet given and pt demonstrated ability to use pen, given RX for test strips and glucometer Total Time Spent: Greater than 30 minutes This includes examination of the patient, discharge planning, medication reconciliation, and communication with other providers. Discharge Instructions Please refer to the electronic Patient Visit Report (Discharge Instructions) for additional information.
[2017-04-16 12:00] VITALS: BP 122/76; PULSE 60; TEMP 36.2; O2SAT 98
[2017-04-25] MEDS ORDERED: LVMI SC (08:15)
[2017-04-25] MEDS ORDERED: PROP10TA7 PO (08:15)
[2017-04-25] MEDS ORDERED: PANT40TA PO (08:15)
[2017-04-25] MEDS ORDERED: CHOL1000 PO (08:15)
[2017-04-25] MEDS ORDERED: VITA1TAB4 PO (08:15)
== END 2017-04-16 12:40 | disposition home or self-care (01) | DRG 370 ==
LOC: C.GI 13:22 → C.2T 14:51 → ENRESERV 15:03 → C.MS2W 04-15 11:04
PROVIDERS: ADMIT Hospitalist; ATTEND Internal Medicine
PROC: 0DJ08ZZ Inspection of Upper Intestinal Tract, Via Natural or Artificial Opening Endoscopic (ICD-10-PCS; principal; 2017-04-14 13:00)
DX: I85.01 Esophageal varices with bleeding (principal); K27.4 Chronic or unspecified peptic ulcer, site unspecified, with hemorrhage; I10 Essential (primary) hypertension; E11.9 Type 2 diabetes mellitus without complications; K76.0 Fatty (change of) liver, not elsewhere classified; E55.9 Vitamin D deficiency, unspecified; K21.9 Gastro-esophageal reflux disease without esophagitis; Z79.82 Long term (current) use of aspirin; K31.89 Other diseases of stomach and duodenum

== ENCOUNTER → 2017-05-19 | Day surgery (SDC) | payer BC, OTHER ==
[2017-04-25 08:17] VITALS: Ht 188 cm; Wt 96.8 kg
[~2017-05-19] VITALS: Ht 188 cm; Wt 96.8 kg
[~2017-05-19] MED LIST changes: -ASPI81TA28 PO; +CHOL1000 PO; -DOXY100C2 PO; -GLC/500 PO; +LIDOCAINE HCL 2% 2 ML VIAL (20MG/ML) ONE; -LOSA1TAB38 PO; +LVMI; +LVMI SC; +MIDAZOLAM HCL 1 MG/ML 2ML VIAL ONE; +PANT40TA PO; +PROP10TA7 PO; +PROPOFOL IV EMULSION 10 MG/ML 20 ML VIAL IV ONE; +VITA1TAB4 PO
--- NOTE | 2017-05-19 14:14 | Endo History and Physical ---
History & Physical Date of Service: May 19, 2017. Chief Complaint: dysphagia Referring Physician: Dr Miller History of Present Illness For EGD Past Surgical History Hx Cardiac Surgery: No Hx Internal Defibrillator: No Hx Pacemaker: No Hx Abdominal Surgery: No Hx of Implantable Prosthesis: No Hx Post-Op Nausea and Vomiting: No Hx Cancer Surgery: No Hx Thoracic Surgery: No Hx Orthopedic: Yes (LT KNEE SURGERY) Hx Urinary Tract Surgery: No Family History None Social History Smoking Status: Never Smoker Hx Substance Use: No Hx Alcohol Use: No Allergies Coded Allergies: No Known Allergies (Verified , 05/19/17) Current Medications Reported Home Medications Medications Dose Route/Sig Max Daily Dose Days Date Category Vitamin D3 (Cholecalciferol) 1,000 Unit Tab 3,000 Units PO DAILY 04/25/17 Reported Vitamin E 400 Unit Tab 1 Tab PO DAILY 04/25/17 Reported Protonix (Pantoprazole Sodium) 40 Mg Tab 40 Mg PO BID 04/25/17 Reported Inderal (Propranolol HCl) 10 Mg Tab 10 Mg PO BID 04/25/17 Reported Levemir (Insulin Detemir) 100 Units/Ml Inj 10 Units SC BID 04/25/17 Reported Glimepiride 2 Mg Tab 2 Mg PO QAM 02/26/16 Reported Vital Signs Weight (Kilograms): 96.82 Height (Feet): 6 Height (Inches): 2 Physical Exam General Appearance: + obese Respiratory/Chest: Respiratory effort: no dyspnea Cardiovascular: Heart Auscultation: RRR Abdomen: Inspection & Palpation: soft Assessment and Plan Dysphagia for EGD
--- NOTE | 2017-05-19 14:16 | Endo History and Physical ---
History & Physical Date of Service: May 19, 2017. Chief Complaint: cirrhosis Referring Physician: Dr Hu History of Present Illness For EGD Past Surgical History Hx Cardiac Surgery: No Hx Internal Defibrillator: No Hx Pacemaker: No Hx Abdominal Surgery: No Hx of Implantable Prosthesis: No Hx Post-Op Nausea and Vomiting: No Hx Cancer Surgery: No Hx Thoracic Surgery: No Hx Orthopedic: Yes (LT KNEE SURGERY) Hx Urinary Tract Surgery: No Family History None Social History Smoking Status: Never Smoker Hx Substance Use: No Hx Alcohol Use: No Allergies Coded Allergies: No Known Allergies (Verified , 05/19/17) Current Medications Reported Home Medications Medications Dose Route/Sig Max Daily Dose Days Date Category Levemir (Insulin Detemir) 100 Units/Ml Inj 35 DAILY 05/19/17 Reported Levemir (Insulin Detemir) 100 Units/Ml Inj Units 05/19/17 Reported Vitamin D3 (Cholecalciferol) 1,000 Unit Tab 3,000 Units PO DAILY 04/25/17 Reported Vitamin E 400 Unit Tab 1 Tab PO DAILY 04/25/17 Reported Protonix (Pantoprazole Sodium) 40 Mg Tab 40 Mg PO BID 04/25/17 Reported Inderal (Propranolol HCl) 10 Mg Tab 10 Mg PO BID 04/25/17 Reported Glimepiride 2 Mg Tab 2 Mg PO QAM 02/26/16 Reported Vital Signs Weight (Kilograms): 96.82 Height (Feet): 6 Height (Inches): 2 Physical Exam General Appearance: WD/WN Respiratory/Chest: Respiratory effort: no dyspnea Cardiovascular: Heart Auscultation: RRR Abdomen: Inspection & Palpation: soft Assessment and Plan Cirrhosis for EGD
[2017-05-19 14:19] VITALS: TEMP 37
--- NOTE | 2017-05-19 14:51 | Discharge Instructions ---
Endoscopy Patient Instructions Date / Procedure(s) Performed May 19, 2017. EGD Allergy Information Coded Allergies: No Known Allergies (Verified , 05/19/17) Discharge Date / Findings May 19, 2017. Varices, portal HTN gastropathy Medication Instructions Stopped Medication(s): Patient was told to hold his diabetic meds. Restart Stopped Medication(s): resume meds Reported Home Medications Medications Dose Route/Sig Max Daily Dose Days Date Category Levemir (Insulin Detemir) 100 Units/Ml Inj 35 DAILY 05/19/17 Reported Levemir (Insulin Detemir) 100 Units/Ml Inj Units 05/19/17 Reported Vitamin D3 (Cholecalciferol) 1,000 Unit Tab 3,000 Units PO DAILY 04/25/17 Reported Vitamin E 400 Unit Tab 1 Tab PO DAILY 04/25/17 Reported Protonix (Pantoprazole Sodium) 40 Mg Tab 40 Mg PO BID 04/25/17 Reported Inderal (Propranolol HCl) 10 Mg Tab 10 Mg PO BID 04/25/17 Reported Glimepiride 2 Mg Tab 2 Mg PO QAM 02/26/16 Reported Provider Instructions Activity Restrictions - No exercising or heavy lifting for 24 hours. - Do not drink alcohol the day of the procedure. - Do not drive a car or operate machinery until the day after the procedure. - Do not make any important decisions or sign important papers in 24 hours after the procedure. Following Day: - Return to full activity which may include returning to work/school. Diet Start your diet with liquids and light foods (jello, soup, juice, toast). Then eat a soft diet for 2 weeks Treatment For Common After Affects For mild abdominal pain, bloating, or excessive gas: - Rest - Eat lightly - Lie on right side Follow-Up Information Follow-up with Dr. Rosey Henson as scheduled Anesthesia Information What You Should Know You have had a procedure that required some medicine to reduce anxiety and discomfort. This treatment is called moderate sedation. After receiving the treatment, you may be sleepy, but you will be able to breathe on your own. The effects of the treatment may last for several hours. Follow these instructions along with Activity/Diet recommendations noted above: * Do NOT do anything where dizziness or clumsiness would be dangerous. * Rest quietly at home today, then you can be up and about tomorrow. * Have a responsible person stay with you the rest of today. * You may have had an I.V. today. If so, you may take the dressing off later today. Recommendations Call your doctor if: * Trouble breathing * Continuous vomiting for more than 24 hours * Temperature above 101 degrees * Severe abdominal pain or bloating * Pain not relieved by pain medicine ordered * There is increased drainage or redness from any incision * A large amount of rectal bleeding greater than 2-3 tablespoons. (If you had a polyp/s removed or have hemorrhoids, a small amount of blood - from the rectum is to be expected.) * You have any unanswered questions or concerns. IN THE EVENT OF A SERIOUS EMERGENCY, GO TO THE NEAREST EMERGENCY ROOM Your discharge instructions were prepared by provider Gama Alonso. Patient Instructions Signature Page Rich Mohamud Patient (or Guardian) Signature/Date: I have read and understand the instructions given to me by my caregivers. Caregiver/RN/Doctor Signature/Date: The above-named patient and/or guardian has received patient instructions on this date. + Original Patient Signature Page (only) stays with chart. Please make copy for patient.
--- NOTE | 2017-05-19 14:56 | GI REPORT ---
Procedure Date: 05/19/2017 2:09 PM Procedure: Upper GI endoscopy Indications: 2nd degree variceal eradication (following bleed), Cirrhosis Medicines: Midazolam 2 mg IV, Propofol total dose 240 mg IV, Lidocaine 80 mg IV Complications: No immediate complications. Estimated Blood Loss: Estimated blood loss: none. Procedure: Pre-Anesthesia Assessment: - Prior to the procedure, a History and Physical was performed, and patient medications, allergies and sensitivities were reviewed. The patient's tolerance of previous anesthesia was reviewed. - The risks and benefits of the procedure and the sedation options and risks were discussed with the patient. All questions were answered and informed consent was obtained. After obtaining informed consent, the endoscope was passed under direct vision. Throughout the procedure, the patient's blood pressure, pulse, and oxygen saturations were monitored continuously. The Scope was introduced through the mouth, and advanced to the second part of duodenum. The upper GI endoscopy was accomplished without difficulty. The patient tolerated the procedure well. Findings: Grade III varices were found in the middle third of the esophagus and in the lower third of the esophagus. Six bands were successfully placed with complete eradication, resulting in deflation of varices. There was no bleeding during, and at the end, of the procedure. Diffuse moderately erythematous mucosa without bleeding was found in the entire examined stomach. The examined duodenum was normal. Impression: - Grade III esophageal varices. Completely eradicated. Banded. - Erythematous mucosa in the stomach. - Normal examined duodenum. - No specimens collected. Recommendation: - Discharge patient to home (ambulatory). - Mechanical soft diet for 2 weeks. - Continue present medications. - Return to GI clinic as previously scheduled. Gama Alonso M.D. Gama Alonso MD 05/19/2017 2:56:06 PM This report has been signed electronically. Note Initiated On: 05/19/2017 2:09 PM I attest to the content of the Intraoperative Record and orders documented therein, exceptions below
[2017-05-19 15:27] VITALS: BP 147/78; PULSE 61; O2SAT 100
--- NOTE | 2017-05-19 15:57 | Anesthesiology Progress Note ---
Anesthesia Post Op Note Date & Time May 19, 2017 at 15:57 Vital Signs Pain Intensity: 0 Vital Signs Past 12 Hours Date Time Temp Pulse Resp B/P (MAP) Pulse Ox O2 Delivery O2 Flow Rate FiO2 05/19/17 15:27 61 16 147/78 (101) 100 Room Air 05/19/17 15:13 59 16 147/80 (102) 99 Room Air 05/19/17 15:08 61 16 144/80 (101) 98 Room Air 05/19/17 14:56 65 16 141/71 (94) 95 Room Air 05/19/17 14:19 37 69 18 157/88 (111) 100 Room Air Notes Mental Status: alert / awake / arousable, participated in evaluation Pt Amnestic to Procedure: Yes Nausea / Vomiting: adequately controlled Pain: adequately controlled Airway Patency, RR, SpO2: stable & adequate BP & HR: stable & adequate Hydration State: stable & adequate Anesthetic Complications: no major complications apparent
== END | disposition home or self-care (01) ==
LOC: C.GI 13:49
PROVIDERS: ATTEND Internal Medicine Gastroenterology
DX: K74.60 Unspecified cirrhosis of liver (principal); I85.10 Secondary esophageal varices without bleeding; I10 Essential (primary) hypertension; E11.9 Type 2 diabetes mellitus without complications; Z79.4 Long term (current) use of insulin; Z79.899 Other long term (current) drug therapy

== ENCOUNTER → 2017-06-09 | Outpatient (CLI) | payer OTHER ==
[~2017-06-09] MED LIST changes: +INSU100I23; -LIDOCAINE HCL 2% 2 ML VIAL (20MG/ML) ONE; -LVMI SC; -MIDAZOLAM HCL 1 MG/ML 2ML VIAL ONE; -PROPOFOL IV EMULSION 10 MG/ML 20 ML VIAL IV ONE
[2017-06-09 19:54] LABS: HEMATOCRIT 28.8 % (42-52); HEMOGLOBIN 9.7 g/dL (14.0-18.0); MEAN CELL VOLUME 86.2 fL (80-100); RED CELL DISTRIBUTION WIDTH CV 13.2 % (11.5-14.5); RED CELL DISTRIBUTION WIDTH SD 41.7 fL (36.4-46.3); WHITE BLOOD COUNT 4.31 K/uL (4.8-10.8)
[2017-06-09 21:07] LABS: MEAN CORPUSCULAR HGB CONC 33.7 g/dl (32-36); MEAN PLATELET VOLUME 11.4 fL (7.4-10.4); PLATELET COUNT 67 K/uL (130-400)
== END | disposition home or self-care (01) ==
LOC: C.LAB 19:33
PROVIDERS: ATTEND Family Medicine
DX: K62.5 Hemorrhage of anus and rectum (principal)

== ENCOUNTER → 2017-06-10 | Day surgery (SDC) | payer OTHER ==
[~2017-06-10] VITALS: Ht 188 cm; Wt 93.2 kg
[~2017-06-10] MED LIST changes: +LIDOCAINE HCL 2% 2 ML VIAL (20MG/ML) ONE; +PROPOFOL IV EMULSION 10 MG/ML 20 ML VIAL IV ONE
[2017-06-10 15:15] VITALS: Ht 188 cm; Wt 93.2 kg
--- NOTE | 2017-06-10 15:40 | Endo History and Physical ---
History & Physical Date of Service: Jun 10, 2017. Chief Complaint: ESOPHAGEAL VARICES, GI BLEED Referring Physician: DR RUCKER History of Present Illness For EGD Past Surgical History Hx Cardiac Surgery: No Hx Internal Defibrillator: No Hx Pacemaker: No Hx Abdominal Surgery: No Hx of Implantable Prosthesis: No Hx Post-Op Nausea and Vomiting: No Hx Cancer Surgery: No Hx Thoracic Surgery: No Hx Orthopedic: Yes (LT KNEE SURGERY) Hx Urinary Tract Surgery: No Family History None Social History Smoking Status: Never Smoker Hx Substance Use: No Hx Alcohol Use: No Allergies Coded Allergies: No Known Allergies (Verified , 06/10/17) Current Medications Reported Home Medications Medications Dose Route/Sig Max Daily Dose Days Date Category Basaglar Kwikpen (Insulin Glargine) 100 Unit/Ml Inj 06/10/17 Reported Vitamin D3 (Cholecalciferol) 1,000 Unit Tab 3,000 Units PO DAILY 04/25/17 Reported Vitamin E 400 Unit Tab 1 Tab PO DAILY 04/25/17 Reported Protonix (Pantoprazole Sodium) 40 Mg Tab 40 Mg PO BID 04/25/17 Reported Inderal (Propranolol HCl) 10 Mg Tab 10 Mg PO BID 04/25/17 Reported Glimepiride 2 Mg Tab 2 Mg PO QAM 02/26/16 Reported Vital Signs Weight (Kilograms): 93.18 Height (Feet): 6 Height (Inches): 2 Date Time Temp Pulse Resp B/P (MAP) Pulse Ox O2 Delivery O2 Flow Rate FiO2 06/10/17 15:27 36.6 77 18 149/84 (105) 99 Room Air Physical Exam General Appearance: WD/WN Respiratory/Chest: Respiratory effort: no dyspnea Cardiovascular: Heart Auscultation: RRR Abdomen: Inspection & Palpation: soft Assessment and Plan Melena for EGD
--- NOTE | 2017-06-10 15:59 | Discharge Instructions ---
Endoscopy Patient Instructions Date / Procedure(s) Performed Jun 10, 2017. EGD Allergy Information Coded Allergies: No Known Allergies (Verified , 06/10/17) Discharge Date / Findings Jun 10, 2017. Healing esophageal ulcers, one with a red spot Medication Instructions Restart Stopped Medication(s): resume meds Reported Home Medications Medications Dose Route/Sig Max Daily Dose Days Date Category Basaglar Kwikpen (Insulin Glargine) 100 Unit/Ml Inj 06/10/17 Reported Vitamin D3 (Cholecalciferol) 1,000 Unit Tab 3,000 Units PO DAILY 04/25/17 Reported Vitamin E 400 Unit Tab 1 Tab PO DAILY 04/25/17 Reported Protonix (Pantoprazole Sodium) 40 Mg Tab 40 Mg PO BID 04/25/17 Reported Inderal (Propranolol HCl) 10 Mg Tab 10 Mg PO BID 04/25/17 Reported Glimepiride 2 Mg Tab 2 Mg PO QAM 02/26/16 Reported Provider Instructions Activity Restrictions - No exercising or heavy lifting for 24 hours. - Do not drink alcohol the day of the procedure. - Do not drive a car or operate machinery until the day after the procedure. - Do not make any important decisions or sign important papers in 24 hours after the procedure. Following Day: - Return to full activity which may include returning to work/school. Diet Start your diet with liquids and light foods (jello, soup, juice, toast). Then eat your usual diet if not nauseated. Treatment For Common After Affects For mild abdominal pain, bloating, or excessive gas: - Rest - Eat lightly - Lie on right side Follow-Up Information Follow-up with DR RUCKER as scheduled Anesthesia Information What You Should Know You have had a procedure that required some medicine to reduce anxiety and discomfort. This treatment is called moderate sedation. After receiving the treatment, you may be sleepy, but you will be able to breathe on your own. The effects of the treatment may last for several hours. Follow these instructions along with Activity/Diet recommendations noted above: * Do NOT do anything where dizziness or clumsiness would be dangerous. * Rest quietly at home today, then you can be up and about tomorrow. * Have a responsible person stay with you the rest of today. * You may have had an I.V. today. If so, you may take the dressing off later today. Recommendations Call your doctor if: * Trouble breathing * Continuous vomiting for more than 24 hours * Temperature above 101 degrees * Severe abdominal pain or bloating * Pain not relieved by pain medicine ordered * There is increased drainage or redness from any incision * A large amount of rectal bleeding greater than 2-3 tablespoons. (If you had a polyp/s removed or have hemorrhoids, a small amount of blood - from the rectum is to be expected.) * You have any unanswered questions or concerns. IN THE EVENT OF A SERIOUS EMERGENCY, GO TO THE NEAREST EMERGENCY ROOM Your discharge instructions were prepared by provider Gama Alonso. Patient Instructions Signature Page Rich Mohamud Patient (or Guardian) Signature/Date: I have read and understand the instructions given to me by my caregivers. Caregiver/RN/Doctor Signature/Date: The above-named patient and/or guardian has received patient instructions on this date. + Original Patient Signature Page (only) stays with chart. Please make copy for patient.
--- NOTE | 2017-06-10 16:05 | GI REPORT ---
Procedure Date: 06/10/2017 3:35 PM Procedure: Upper GI endoscopy Indications: Melena, Cirrhosis with suspected esophageal varices, Follow-up of esophageal varices Medicines: Propofol total dose 180 mg IV, Lidocaine 80 mg IV Complications: No immediate complications. Estimated Blood Loss: Estimated blood loss: none. Estimated blood loss: none. Procedure: Pre-Anesthesia Assessment: - Prior to the procedure, a History and Physical was performed, and patient medications, allergies and sensitivities were reviewed. The patient's tolerance of previous anesthesia was reviewed. - The risks and benefits of the procedure and the sedation options and risks were discussed with the patient. All questions were answered and informed consent was obtained. After obtaining informed consent, the endoscope was passed under direct vision. Throughout the procedure, the patient's blood pressure, pulse, and oxygen saturations were monitored continuously. The scope was introduced through the mouth, and advanced to the second part of duodenum. The upper GI endoscopy was accomplished without difficulty. The patient tolerated the procedure well. Findings: Five superficial esophageal ulcers with no bleeding were found. One had a flat red spot that was the probable site of prior bleeding. The largest lesion was 5 mm in largest dimension. The entire examined stomach was normal. The examined duodenum was normal. Impression: - Non-bleeding esophageal ulcers. - No specimens collected. Recommendation: - Discharge patient to home (ambulatory). - Soft diet for 2 weeks. - Continue present medications. - Return to primary care physician PRN. Gama Alonso M.D. Gama Alonso MD 06/10/2017 4:04:32 PM This report has been signed electronically. Note Initiated On: 06/10/2017 3:35 PM I attest to the content of the Intraoperative Record and orders documented therein, exceptions below
--- NOTE | 2017-06-10 16:12 | Anesthesiology Progress Note ---
Anesthesia Post Op Note Date & Time Jun 10, 2017 at 16:12 Vital Signs Pain Intensity: 0 Vital Signs Past 12 Hours Date Time Temp Pulse Resp B/P (MAP) Pulse Ox O2 Delivery O2 Flow Rate FiO2 06/10/17 16:06 71 20 105/67 (80) 100 Room Air 06/10/17 15:27 36.6 77 18 149/84 (105) 99 Room Air Notes Mental Status: alert / awake / arousable, participated in evaluation Pt Amnestic to Procedure: Yes Nausea / Vomiting: adequately controlled Pain: adequately controlled Airway Patency, RR, SpO2: stable & adequate BP & HR: stable & adequate Hydration State: stable & adequate Anesthetic Complications: no major complications apparent
[2017-06-10 16:35] VITALS: BP 147/92; PULSE 75; O2SAT 100
== END | disposition home or self-care (01) ==
LOC: C.GI 15:06
PROVIDERS: ATTEND Internal Medicine Gastroenterology
DX: I85.00 Esophageal varices without bleeding (principal); K92.2 Gastrointestinal hemorrhage, unspecified; K92.1 Melena; K74.60 Unspecified cirrhosis of liver; K22.10 Ulcer of esophagus without bleeding; Z98.890 Other specified postprocedural states; E11.9 Type 2 diabetes mellitus without complications; Z79.4 Long term (current) use of insulin

== ENCOUNTER 2022-02-16 17:00 | Observation (INO) ==
[2022-02-16 17:35] LABS: INR 1.2 (0.9-1.1); Partial Thromboplastin Time 26.3 Seconds (21.0-31.0); Prothrombin Time 12.4 Seconds (9.0-12.0)
[2022-02-16 17:51] LABS: Albumin Globulin Ratio 1.1 (0.9-2); BUN Creatinine Ratio 28.2 (10-20); Bilirubin,Total 1.6 mg/dl (0.2-1.0); Calcium 9.3 mg/dl (8.5-10.1); Creatinine Clr Calc Pharmacy 132.9 ml/min; Est GFR (African American) 131.3 ml/min; Est GFR (Non-African American) 113.3 ml/min; Globulin 3.5 gm/dl (2.5-4.0); Potassium 4.2 mmol/L (3.5-5.1); Total Protein 7.5 gm/dl (6.0-8.3)
[2022-02-16 18:33] LABS: Hematocrit (blood only) 24.3 % (40.1-51.0); Hemoglobin 7.1 g/dl (14.0-18.0); Mean Corpuscular Hemoglobin 20.6 pg (25.0-34.0); Mean Corpuscular Hgb Conc 29.2 g/dL (32.0-36.0); Mean Corpuscular Volume 70.4 fL (80.0-100.0); Platelet Count 54 K/uL (130-400); RDW Coefficient of Variation 16.9 % (11.5-14.5); RDW Standard Deviation 42.6 fL (36.4-46.3); Red Blood Count 3.45 M/uL (4.63-6.08); White Blood Count 2.95 K/ul (4.8-10.8)
[2022-02-16] MEDS ORDERED: SODIUM CHLORIDE 0.9% 250 ML IV PRN (19:16)
[2022-02-16] MEDS ORDERED: PANTOprazole 80 MG in DEXTROSE 5% 100 ML IV ONE (19:27)
[2022-02-16] MEDS ORDERED: PANTOPRAZOLE BOLUS/DRIP 1 EACH IV STA (19:27)
[2022-02-16] MEDS: PANTOprazole 40 MG in DEXTROSE 5% 100 ML IV SCH (20:11)
--- NOTE | 2022-02-16 20:51 | History & Physical Report ---
Date of Service February 16, 2022 Assessment & Plan (1) Cryptogenic cirrhosis of liver: Plan: Mr. Mohamud is a 46 yo male with PMHx of cryptogenic liver disease (diagnosed 5-6 years ago), splenomegaly, esophageal varices, DM2, and HTN admitted to [facility] 02/16/22 for anemia in the setting of known cryptogenic cirrhosis and esophageal varices. Anemia - Patient with acute on chronic anemia in the setting of cryptogenic cirrhosis and esophageal varices - Patient notes that his baseline Hgb in 8.0 - 9.0 - Outpatient labs show Hgb 6.6 and ER Hgb 7.1 - In the ER, stool guaiac testing with slightly positive - No gross blood on bowel movements, melena, or hematemesis - No hx of prior blood transfusions - Patient consented to blood transfusion, cross/typed, and currently with 1st unit of PRBCs being infused - Monitor H&H q6h - Repeat CBC in AM Cryptogenic Cirrhosis and Esophageal Varices - Home regimen includes: carvedilol 6.25mg po BID, furosemide 20mg po daily, pantoprazole 40mg po BID, and spironolactone 50mg po daily - No sign of overt bleeding at this time - Patient hemodynamically stable - In the ER, patient was started on protonix bolus and gtt; continue and plan to transition back to protonix 40mg tomorrow - Patient's primary GI/transplant hvac service manager is Dr. Gutierrez at [facility] - Patient requests that if further GI evaluation is required, he would like to go to [facility] for continuity of care. As patient is otherwise stable at this point, I feel this is reasonable and will defer in house GI consult. Will continue to monitor anemia as noted above - Repeat CMP and INR in AM DMII - Home regimen held on admission - Cover with ISS - Goal 100-140, CF 50, CR 20 - Plan to restart home medications on discharge HTN - Continue home losartan, carvedilol, lasix, and spironolactone - BP well controlled Code status: FULL CODE (2) Esophageal varices: (3) DM II (diabetes mellitus, type II), controlled: (4) Hypertension: (5) Anemia: History of Present Illness Primary Care Provider: Rosey Hu MD Patient is a 46 yo male with PMHx of cryptogenic liver disease (diagnosed 5-6 years ago), splenomegaly, esophageal varices, DM2, and HTN who presented to [facility] ER on 02/16/22 due to anemia. Patient states that he went to a wedding this past Tuesday (3 days ago) and on Tuesday he had nausea, vomiting, and diarrhea. Patient suspected that he had food poisoning. He took off from work yesterday due to generalized malaise and fatigue that was persistent. Patient contacted his PCP, Dr. Henson, who ordered outpatient labs which revealed a Hgb of 6.6. Patient notes that his baseline Hgb is 8-9. Due to his current medical conditions, patient notes that he is vigilant with regards to looking at stool output and emesis to monitor for bleeding; there has been no gross blood during BMs or with the recent episode of emesis over the weekend. Patient has had no coffee ground emesis. He is currently w/o abdominal pain or nausea. Patient reports some mild SOB and lightheadedness with positional changes but denies HEWITT, CP, leg pain, leg swelling, or any other symptoms. In the ER, patient's VSS. His Hgb was redraw and resulted at 7.1. Patient was typed and crossed and blood transfusion initiated with 1 unit PRBCs. Leukopenia noted at 2.95. Thrombocytopenia 54. INR 1.2. Mild hyponatremia with Na 134 otherwise no electrolyte abnormalities. Cr 0.71. Total bilirubin 1.6. Otherwise LFTs are wnl. COVID negative. To note, patient follows with Dr. Gutierrez, hvac service manager, at [facility]. Patient's last EGD was 3 months ago. If patient requires GI intervention/scope, he would prefer for these studies to be completed at [facility]. Allergies Allergy/AdvReac Type Severity Reaction Status Date / Time No Known Allergies Allergy Verified 02/16/22 20:06 Home Medications Medication Instructions Recorded Confirmed Type glimepiride 2 mg tablet 2 mg PO QAM 12/01/20 02/16/22 History losartan 25 mg tablet 25 mg PO QAM 12/01/20 02/16/22 History metformin 500 mg tablet 1,000 mg PO BID 12/01/20 02/16/22 History pantoprazole 40 mg tablet,delayed 40 mg PO BID 12/01/20 02/16/22 History release carvedilol 6.25 mg tablet 6.25 mg PO BID 05/19/21 02/16/22 History furosemide 20 mg tablet 20 mg PO DAILY 05/19/21 02/16/22 History metoclopramide HCl 5 mg tablet 5 mg PO TID PRN nausea and 05/19/21 02/16/22 Rx (Reglan) vomiting #20 tabs spironolactone 50 mg tablet 50 mg PO DAILY 05/19/21 02/16/22 History cholecalciferol (vitamin D3) 50 50 mcg PO DAILY 02/16/22 02/16/22 History mcg (2,000 unit) tablet (Vitamin D3) multivitamin 1 tab PO DAILY 02/16/22 02/16/22 History vitamin E 268 mg (400 unit) capsule 268 mg PO DAILY 02/16/22 02/16/22 History Past Med/Surg History Medical History (Updated 02/17/22 @ 01:32 by Yesenia José DO) Cirrhosis Cryptogenic cirrhosis of liver Diabetes mellitus, type 2 Hx of Lyme disease Hypertension Liver disease Surgical History H/O arthroscopy of left knee Social History Smoking Status: Never smoker Second Hand Exposure: No; Do You Dip or Chew Tobacco: No; Hx Alcohol Use: No Hx Substance Use: No Preferred Language: [place]ian Communication Ability: Effective [employer] Required: No Beliefs That Will Affect Care: None Current Living Situation: Spouse and Parent Other Information That Helps Us Care for You: No Feels Safe at Home: Yes Safety Concerns: Feels Safe At This Time Assistive Devices: None Review of Systems Review of Systems: See HPI Physical Exam Physical Exam: GENERAL: Pleasant male, appears stated age, in no acute distress. Well developed and well nourished. Vital signs reviewed as above. EYES: PERRLA. EOMI. Anicteric sclerae. HENT: Moist mucous membranes. No pharyngeal erythema or exudates. RESPIRATORY: Clear to auscultation bilaterally. No wheezing, rales, or rhonchi. CARDIOVASCULAR: Regular rate and rhythm. No murmurs. No JVD. ABDOMEN: Soft, non-tender and non-distended. Normal bowel sounds. EXTREMITIES: No edema. Non-tender. SKIN: Warm, dry. No significant pallor. NEUROLOGIC: A/O x3. Normal speech. No focal neurological deficits. CN II-XII grossly intact. 5/5 strength in BUE and BLE. PSYCHIATRIC: Cooperative. Appropriate mood and affect. Results & Data Results & Data ([facility]) Vital Signs (Past 12 Hours) Vital Signs Temp Pulse Pulse Resp BP BP Pulse Ox 02/16/22 19:00 74 18 125/70 98 02/16/22 19:57 36.9 C 76 18 139/72 100 02/16/22 19:40 37 C 77 18 129/65 100 02/16/22 17:18 98 02/16/22 17:16 78 18 122/63 99 02/16/22 17:01 36.9 C 79 16 131/72 100 O2 Del Method 02/16/22 19:00 02/16/22 19:57 02/16/22 19:40 02/16/22 17:18 Room Air 02/16/22 17:16 Room Air 02/16/22 17:01 Room Air Laboratory Results 02/16/22 02/16/22 02/16/22 Range/Units 19:15 17:38 17:11 WBC (4.8-10.8) K/ul RBC (4.63-6.08) M/uL Hgb (14.0-18.0) g/dl Hct (40.1-51.0) % MCV (80.0-100.0) fL MCH (25.0-34.0) pg MCHC (32.0-36.0) g/dL RDW Std Deviation (36.4-46.3) fL RDW Coeff of Samy (11.5-14.5) % Plt Count (130-400) K/uL PT (9.0-12.0) Seconds INR (0.9-1.1) APTT (21.0-31.0) Seconds PTT Ratio Sodium 134 L (136-145) mmol/L Potassium 4.2 (3.5-5.1) mmol/L Chloride 103 (98-107) mmol/L Carbon Dioxide 23 (21-32) mmol/L Anion Gap 8 (3-11) BUN 20 (6-23) mg/dl Creatinine 0.71 (0.6-1.4) mg/dl Est Cr Clr Drug Dosing 132.9 ml/min Est GFR ( Amer) 131.3 ml/min Est GFR (Non-Af Amer) 113.3 ml/min BUN/Creatinine Ratio 28.2 H (10-20) Glucose 213 H (70-99(Fasting)) mg/dl Calcium 9.3 (8.5-10.1) mg/dl Total Bilirubin 1.6 H (0.2-1.0) mg/dl AST 24 (13-39) U/L ALT 28 (7-52) U/L Alkaline Phosphatase 55 (34-104) U/L Total Protein 7.5 (6.0-8.3) gm/dl Albumin 4.0 (3.4-5.0) gm/dl Globulin 3.5 (2.5-4.0) gm/dl Albumin/Globulin Ratio 1.1 (0.9-2) SARS-CoV-2, RNA, NAAT NEGATIVE (NEGATIVE) Blood Type Blood Type Recheck A Positive Antibody Screen Crossmatch 02/16/22 02/16/22 02/16/22 Range/Units 17:11 17:11 17:11 WBC 2.95 L (4.8-10.8) K/ul RBC 3.45 L (4.63-6.08) M/uL Hgb 7.1 L (14.0-18.0) g/dl Hct 24.3 L (40.1-51.0) % MCV 70.4 L (80.0-100.0) fL MCH 20.6 L (25.0-34.0) pg MCHC 29.2 L (32.0-36.0) g/dL RDW Std Deviation 42.6 (36.4-46.3) fL RDW Coeff of Samy 16.9 H (11.5-14.5) % Plt Count 54 L (130-400) K/uL PT 12.4 H (9.0-12.0) Seconds INR 1.2 H (0.9-1.1) APTT 26.3 (21.0-31.0) Seconds PTT Ratio 1.0 Sodium (136-145) mmol/L Potassium (3.5-5.1) mmol/L Chloride (98-107) mmol/L Carbon Dioxide (21-32) mmol/L Anion Gap (3-11) BUN (6-23) mg/dl Creatinine (0.6-1.4) mg/dl Est Cr Clr Drug Dosing ml/min Est GFR ( Amer) ml/min Est GFR (Non-Af Amer) ml/min BUN/Creatinine Ratio (10-20) Glucose (70-99(Fasting)) mg/dl Calcium (8.5-10.1) mg/dl Total Bilirubin (0.2-1.0) mg/dl AST (13-39) U/L ALT (7-52) U/L Alkaline Phosphatase (34-104) U/L Total Protein (6.0-8.3) gm/dl Albumin (3.4-5.0) gm/dl Globulin (2.5-4.0) gm/dl Albumin/Globulin Ratio (0.9-2) SARS-CoV-2, RNA, NAAT (NEGATIVE) Blood Type A Positive Blood Type Recheck Antibody Screen NEGATIVE Crossmatch See Detail Supervising Physician Co-Signing Physician Notes Attending addendum: I have physically seen this patient, have supervised the medical residents activities, and agree with the H&P unless as otherwise noted. Assessment and Plan: Acute on chronic anemia- Hemoglobin in the outpatient setting was 6.6, and in the ED is 7.1, with baseline range 8-9 Guaiac testing in the ED was slightly positive Patient will receive 2 units PRBCs as ordered by the ED Repeat laboratories in a.m. H&H every 6 hours Cryptogenic cirrhosis/esophageal varices- Unlikely variceal bleeding Follows with Dr. Gutierrez at [facility] [place] Do not anticipate need for any procedure at our facility, they cannot wait to be done until at [facility] again Follow laboratories in the morning for verification Diabetes mellitus- Placed on Accu-Cheks with NovoLog coverage Check hemoglobin A1c Hypertension- Continue home medications with hold parameters Remaining orders and notations as noted Resident Activity Tracking Resident Involvement: Resident Care Provided Care Provided: Adult Hospital Medicine (1) Esophageal varices Esophageal varices bleeding: with bleeding Esophageal varices type: secondary Qualified Code(s): I85.11 - Secondary esophageal varices with bleeding
[2022-02-16] MEDS ORDERED: ALUMINUM/MAGNESIUM SUSP 30 ML UDC PO PRN (23:26)
[2022-02-16] MEDS ORDERED: ONDANSETRON INJ 2 MG/ML 2 ML VIAL IV PRN (23:26)
[2022-02-17 00:03] LABS: Hematocrit (blood only) 25.3 % (40.1-51.0); Hemoglobin 7.5 g/dl (14.0-18.0)
--- NOTE | 2022-02-17 00:26 | Emergency Department Note ---
Impression & Plan UGIB (upper gastrointestinal bleed), Cirrhosis, Esophageal varices ED Provider Note CHIEF COMPLAINT: anemia, liver disease HISTORY OF PRESENT ILLNESS: This 46 yo male patient presents to the emergency department with c/o abnl labs, decreased hbg. Pt has known liver dx, esophageal varices and h/o GIB. Several days ago the patient had attended a wedding and states he had a vomiting and diarrhea subsequently. He thought perhaps he had food poisoning however no one else was sick. He denies any alcohol intake at the venue. Patient denied any blood in the emesis or stools. Patient denies any fevers, chills, chest pain or shortness of breath. REVIEW OF SYSTEMS: A review of systems was performed with positives and pertinent negatives listed in the history of present illness. 10 systems were reviewed and are otherwise negative. ALLERGIES: see below MEDICATIONS: see below PMH: see below SOCIAL HISTORY: see below DDx: Diverticulosis, AVM, coagulopathy, colitis, inflammatory bowel disease, malignancy, [place]-Hernández tear, esophagitis, peptic ulcer disease, variceal blee d, gastritis, epistaxis, fissure, hemorrhoids, as well as other pathologies. PHYSICAL EXAM: Vital signs reviewed. General: Chronically ill-appearing 46-year-old male, in no significant distress. HEENT: Pale conjunctiva, PERRLA, neck supple. Cardiovascular: Regular rate and rhythm, no extra sounds. Pulmonary: Clear to auscultation bilaterally, normal work of breathing. Abdomen: Soft, nontender, nondistended, positive bowel sounds. Musculoskeletal: Atraumatic, no peripheral edema. Neurologic: Patient awake alert and oriented x 3, speech is clear Rectal: Guaiac positive brown stool. normal mucosa Skin: Warm, dry, no rash EMERGENCY DEPARTMENT COURSE/MDM: This patient was evaluated and appeared to be in no significant distress. Patient was placed on cardiac catheterization technician and noted to be in normal sinus rhythm. IV access was obtained and laboratory work was drawn. Patient was typed and crossed for 2 units of PRBCs. He was consented for transfusion. Patient is guaiac positive from below. He was started on a Protonix bolus and drip. Patient remained stable and was discussed with the h ospitalist service for admission and further management. Patient expressed understanding of the plan and agreed. MONITORING: An order for cardiac monitoring was placed and the patient is noted to be in a NSR at 74 beats per minute. EKG:NSR at 78 bpm, QTc 451, normal ST segments, no PVC, no PAC. DISPOSITION: admit I have personally spent 30 minutes of critical care time in the direct managem ent of this patient. This was a life/limb threatening event. This 30 minutes is in excess of all separately billable procedures. Past Med/Surg History Medical History Cirrhosis Diabetes mellitus, type 2 Hx of Lyme disease Liver disease Surgical History H/O arthroscopy of left knee Social History Smoking Status: Never smoker Preferred Language: Cape Verdean Feels Safe at Home: Yes Allergies Allergies Allergy/AdvReac Type Severity Reaction Status Date / Time No Known Allergies Allergy Verified 02/16/22 20:06 Home Meds Home Medications Medication Instructions Recorded Confirmed glimepiride 2 mg tablet 2 mg PO QAM 12/01/20 02/16/22 losartan 25 mg tablet 25 mg PO QAM 12/01/20 02/16/22 metformin 500 mg tablet 1,000 mg PO BID 12/01/20 02/16/22 pantoprazole 40 mg tablet,delayed 40 mg PO BID 12/01/20 02/16/22 release carvedilol 6.25 mg tablet 6.25 mg PO BID 05/19/21 02/16/22 furosemide 20 mg tablet 20 mg PO DAILY 05/19/21 02/16/22 spironolactone 50 mg tablet 50 mg PO DAILY 05/19/21 02/16/22 cholecalciferol (vitamin D3) 50 50 mcg PO DAILY 02/16/22 02/16/22 mcg (2,000 unit) tablet (Vitamin D3) multivitamin 1 tab PO DAILY 02/16/22 02/16/22 vitamin E 268 mg (400 unit) capsule 268 mg PO DAILY 02/16/22 02/16/22 Previous Rx's Medication Instructions Recorded metoclopramide HCl 5 mg tablet 5 mg PO TID PRN nausea and 05/19/21 (Reglan) vomiting #20 tabs Results & Data (ED) Vital Signs Vital Signs - 24 hr 02/16/22 17:01 02/16/22 17:16 02/16/22 17:18 Temperature 36.9 C Temperature Source Temporal Artery Scan Pulse Rate 79 Pulse Rate [Finger] 78 Pulse Rhythm Respiratory Rate 16 18 Blood Pressure 131/72 Blood Pressure [Left Arm] 122/63 Blood Pressure Mean 91 Blood Pressure Mean [Left Arm] 82 Pulse Oximetry 100 99 98 Oxygen Delivery Method Room Air Room Air Room Air Sepsis Recent Fever Within 48 Hours No Sepsis New/Unexplained Change in Mental Status N/A Sepsis Action Taken by Nursing No Action Required 02/16/22 19:40 02/16/22 19:57 02/16/22 19:00 Temperature 37 C 36.9 C Temperature Source Oral Oral Pulse Rate 77 76 Pulse Rate [Finger] 74 Pulse Rhythm Respiratory Rate 18 18 18 Blood Pressure 129/65 139/72 Blood Pressure [Left Arm] 125/70 Blood Pressure Mean 86 94 Blood Pressure Mean [Left Arm] 88 Pulse Oximetry 100 100 98 Oxygen Delivery Method Sepsis Recent Fever Within 48 Hours Sepsis New/Unexplained Change in Mental Status Sepsis Action Taken by Nursing 02/16/22 20:27 02/16/22 20:57 02/16/22 21:27 Temperature 36.9 C 36.9 C 36.9 C Temperature Source Oral Oral Oral Pulse Rate 76 81 74 Pulse Rate [Finger] Pulse Rhythm Regular Respiratory Rate 18 18 18 Blood Pressure 127/75 129/75 118/76 Blood Pressure [Left Arm] Blood Pressure Mean 92 93 90 Blood Pressure Mean [Left Arm] Pulse Oximetry 100 100 100 Oxygen Delivery Method Sepsis Recent Fever Within 48 Hours Sepsis New/Unexplained Change in Mental Status Sepsis Action Taken by [facility] Medications Current Medication List: was personally reviewed by me Laboratory Data Attestation: I reviewed the patient's lab results. Result diagrams: 02/16/22 23:46 02/16/22 17:11 Lab Results 02/16/22 02/16/22 02/16/22 Range/Units 17:11 17:11 17:11 WBC 2.95 L (4.8-10.8) K/ul RBC 3.45 L (4.63-6.08) M/uL Hgb 7.1 L (14.0-18.0) g/dl Hct 24.3 L (40.1-51.0) % MCV 70.4 L (80.0-100.0) fL MCH 20.6 L (25.0-34.0) pg MCHC 29.2 L (32.0-36.0) g/dL RDW Std Deviation 42.6 (36.4-46.3) fL RDW Coeff of Samy 16.9 H (11.5-14.5) % Plt Count 54 L (130-400) K/uL PT 12.4 H (9.0-12.0) Seconds INR 1.2 H (0.9-1.1) APTT 26.3 (21.0-31.0) Seconds PTT Ratio 1.0 Sodium (136-145) mmol/L Potassium (3.5-5.1) mmol/L Chloride (98-107) mmol/L Carbon Dioxide (21-32) mmol/L Anion Gap (3-11) BUN (6-23) mg/dl Creatinine (0.6-1.4) mg/dl Est Cr Clr Drug Dosing ml/min Est GFR ( Amer) ml/min Est GFR (Non-Af Amer) ml/min BUN/Creatinine Ratio (10-20) Glucose (70-99(Fasting)) mg/dl Calcium (8.5-10.1) mg/dl Total Bilirubin (0.2-1.0) mg/dl AST (13-39) U/L ALT (7-52) U/L Alkaline Phosphatase (34-104) U/L Total Protein (6.0-8.3) gm/dl Albumin (3.4-5.0) gm/dl Globulin (2.5-4.0) gm/dl Albumin/Globulin Ratio (0.9-2) SARS-CoV-2, RNA, NAAT (NEGATIVE) Blood Type A Positive Blood Type Recheck Antibody Screen NEGATIVE Crossmatch See Detail 02/16/22 02/16/22 02/16/22 Range/Units 17:11 17:38 19:15 WBC (4.8-10.8) K/ul RBC (4.63-6.08) M/uL Hgb (14.0-18.0) g/dl Hct (40.1-51.0) % MCV (80.0-100.0) fL MCH (25.0-34.0) pg MCHC (32.0-36.0) g/dL RDW Std Deviation (36.4-46.3) fL RDW Coeff of Samy (11.5-14.5) % Plt Count (130-400) K/uL PT (9.0-12.0) Seconds INR (0.9-1.1) APTT (21.0-31.0) Seconds PTT Ratio Sodium 134 L (136-145) mmol/L Potassium 4.2 (3.5-5.1) mmol/L Chloride 103 (98-107) mmol/L Carbon Dioxide 23 (21-32) mmol/L Anion Gap 8 (3-11) BUN 20 (6-23) mg/dl Creatinine 0.71 (0.6-1.4) mg/dl Est Cr Clr Drug Dosing 132.9 ml/min Est GFR ( Amer) 131.3 ml/min Est GFR (Non-Af Amer) 113.3 ml/min BUN/Creatinine Ratio 28.2 H (10-20) Glucose 213 H (70-99(Fasting)) mg/dl Calcium 9.3 (8.5-10.1) mg/dl Total Bilirubin 1.6 H (0.2-1.0) mg/dl AST 24 (13-39) U/L ALT 28 (7-52) U/L Alkaline Phosphatase 55 (34-104) U/L Total Protein 7.5 (6.0-8.3) gm/dl Albumin 4.0 (3.4-5.0) gm/dl Globulin 3.5 (2.5-4.0) gm/dl Albumin/Globulin Ratio 1.1 (0.9-2) SARS-CoV-2, RNA, NAAT NEGATIVE (NEGATIVE) Blood Type Blood Type Recheck A Positive Antibody Screen Crossmatch Administered Medications Pantoprazole Sodium 40 mg/ (Dextrose) 100 mls @ 20 mls/hr IV Q5H [facility] Stop: 03/18/22 19:44 Last Admin: 02/16/22 20:11 Dose: 8 mg/hr, 20 mls/hr Documented By: KRISTINA Discontinued Medications Pantoprazole Sodium 80 mg/ (Dextrose) 120 mls @ 400 mls/hr IV NOW ONE Stop: 02/16/22 19:44 Last Infusion: 02/16/22 20:55 Dose: 0 mls/hr Documented By: Admin: 02/16/22 20:10 Dose: 400 mls/hr Documented By: KRISTINA Blood Pressure Blood Pressure Findings: Normal blood pressure Blood Pressure Disposition: did not require urgent referral Discharge Plan Visit Data Chief Complaint: Abnormal Labs/Diagnostic Testing Stated Complaint: LOW HEMOGLOBIN,REFERRED BY DOCTOR ED Provider: Jennifer Mcgill Discharge Problem: UGIB (upper gastrointestinal bleed), Cirrhosis, Esophageal varices Patient Disposition: Admitted As Inpatient Discharge Instructions Interventions: ED Discharge Assessment Last Done: 02/16/22 22:28
[2022-02-17] MEDS: carvediloL 6.25 MG TAB PO SCH ×3 (00:58→20:41)
[2022-02-17] MEDS: PANTOprazole 40 MG in DEXTROSE 5% 100 ML IV SCH ×3 (00:58→11:09)
[2022-02-17] MEDS ORDERED: GLUCOSE 10 TAB/TUBE PO PRN (01:33)
[2022-02-17] MEDS ORDERED: CARBOHYDRATES FOR HYPOGLYCEMIA PO PRN (01:33)
[2022-02-17] MEDS ORDERED: DEXTROSE 50% 50 ML SYRINGE IV PRN (01:33)
[2022-02-17] MEDS ORDERED: GLUCAGON FOR INJ 1 MG VIAL SQ PRN (01:33)
[2022-02-17] MEDS ORDERED: GLUCOSE 40% GEL 15 GM TUBE PO PRN (01:33)
[2022-02-17 06:15] LABS: Hematocrit (blood only) 23.9 % (40.1-51.0); Hemoglobin 7.2 g/dl (14.0-18.0); White Blood Count 2.24 K/ul (4.8-10.8)
[2022-02-17 06:27] LABS: INR 1.2 (0.9-1.1); Prothrombin Time 12.8 Seconds (9.0-12.0)
--- NOTE | 2022-02-17 06:37 | Hospitalist Progress Note ---
Date of Service February 17, 2022 Assessment & Plan (1) Cryptogenic cirrhosis of liver: Plan: Mr. Mohamud is a 46 yo male with PMHx of cryptogenic liver disease (diagnosed 5-6 years ago) with sequelae including splenomegaly and esophageal varices, DM2, and HTN admitted to [facility] 02/16/22 for nausea, vomiting, and fatigue, subsequently found to have seork-cl-roeubxu anemia. Lxnjz-ok-Gjrvcdj Anemia - Patient with acute on chronic anemia in the setting of cryptogenic cirrhosis and known esophageal varices and gastric polyps - Work-up as follows: - Patient notes that his baseline Hgb in 8.0 - 9.0 - Outpatient labs show Hgb 6.6 and ER Hgb 7.1 - Since arrival: 7.5 -> 7.1 -> 6.9 - Iron labs w/ iron deficiency pattern (Ferritin 7) - In the ER, stool guaiac testing with slightly positive - No reported blood on bowel movements, melena, or hematemesis - Primarily suspect secondary to polypeal bleed rather than esophageal in the setting of acute nausea/emesis previously - Given transfusion #2 now given drop to 6.9 - Transition Protonix gtt --> b.i.d. - Give Venofer 300mg now - Recheck in AM. If still Hgb < 7, then consult GI for EGD here. If notably improved, can likely manage as outpatient with close [facility] GI follow-up and lab checks Cryptogenic Cirrhosis and Esophageal Varices - Home regimen includes: carvedilol 6.25mg po BID, furosemide 20mg po daily, pantoprazole 40mg po BID, and spironolactone 50mg po daily - No sign of overt bleeding at this time, though trace positive heme-occult noted in the ED; patient with onshk-tv-ivvzuim anemia - Patient strongly prefers being discharged once stable to f/u with [facility] GI if possible; however, amenable to EGD/GI consult here if H&H continues to decrease - Patient's primary GI/transplant phone screener is Dr. Gutierrez at [facility] - will require close f/u following discharge if not scoped here - Continue Coreg, PPI DMII - Home regimen held on admission - Cover with ISS - Goal 100-140, CF 50, CR 20 - Plan to restart home medications on discharge HTN - Continue home carvedilol and spironolactone - Hold Lasix and Losartan in the setting of acute anemia until clinical picture is stabilized Code status: FULL CODE Dispo: PCU -- transfer to MS/T PPX: SCDs Diet: Full liquid --> NPO @ midnight (2) Esophageal varices: (3) DM II (diabetes mellitus, type II), controlled: (4) Hypertension: (5) Anemia: Admission and Anticipated Discharge Date Admission Date: February 16, 2022 Supervising Physician Co-Signing Physician Notes I personally examined the patient and verified all sheikh points of history and exam, discussed case, and agree with decision making with Dr Madera feeling OK overall. discussed situation vitals noted nad heent nc at mmm breathing unlabored no accessory muscles good effort skin no rashes no pallor or icterus neuro no focal deficits fe def anemia - likely chronic slow gi bleeding now more symptomatically manifest as Fe def has now precluded meaningful reticulocyte response -- transfuse, give iron. follow. likely will be stable for GI follow up and probable endoscopic w/u at [facility] which is his preference, but if any decompensation he is OK w endoscopy here. outpt f/u of Hgb and Fe, replace Fe IV now, then PO ongoing (and revert to IV as outpt if needed) Subjective NAEO. Feeling well overall. Denies hematochezia or melena. Reviewed HPI - no sig nificant additions. Denies chest pain, palpitations, nausea, SOB. Review of Systems Review of Systems: as per HPI Physical Exam Physical Exam: General: 46-year old male who is alert, oriented, and appears in no acute distress. HEENT: NCAT. - Eyes - Sclera are white, very mildly icteric, and without injection. - Mouth - MMM - Neck - supple, no appreciable JVD Cardiac: Normal rate and regular rhythm; S1 and S2 present with no murmurs, rubs, or gallops. Pulmonary: Good respiratory effort with symmetric expansion of the chest. No use of accessory muscles. Lungs were clear to auscultation bilaterally with no crackles or wheezes. Abdominal: Normoactive bowel sounds. Abdomen was soft, nondistended, and non- tender to palpation. Splenomegaly noted. Extremities: Upper and lower extremities are warm and well perfused. No peripheral edema in the lower extremities bilaterally Psych: Well-developed, well-nourished, appropriately dressed for occasion. Behavior is cooperative and appropriate. Affect is WNL. Insight is appropriate. Results & Data Results & Data ([facility]) Vital Signs (Past 12 Hours) Vital Signs Temp Pulse Pulse Resp BP BP BP 02/17/22 00:00 79 02/17/22 03:57 36.6 C 69 18 105/55 L 02/17/22 01:52 37.1 C 80 16 145/78 H 02/16/22 23:26 37.1 C 80 16 145/78 H 02/16/22 23:26 02/16/22 22:28 74 18 118/75 02/16/22 22:11 73 18 121/80 02/16/22 21:27 36.9 C 74 18 118/76 02/16/22 20:57 36.9 C 81 18 129/75 02/16/22 20:27 36.9 C 76 18 127/75 02/16/22 19:00 74 18 125/70 02/16/22 19:57 36.9 C 76 18 139/72 02/16/22 19:40 37 C 77 18 129/65 Pulse Ox Pulse Ox O2 Del Method O2 Del Method 02/17/22 00:00 02/17/22 03:57 99 Room Air 02/17/22 01:52 100 Room Air 02/16/22 23:26 100 Room Air 02/16/22 23:26 100 Room Air 02/16/22 22:28 99 02/16/22 22:11 100 02/16/22 21:27 100 02/16/22 20:57 100 02/16/22 20:27 100 02/16/22 19:00 98 02/16/22 19:57 100 02/16/22 19:40 100 Resident Activity Tracking Resident Involvement: Resident Care Provided Care Provided: Adult Hospital Medicine (1) Esophageal varices Esophageal varices bleeding: with bleeding Esophageal varices type: secondary Qualified Code(s): I85.11 - Secondary esophageal varices with bleeding
[2022-02-17 06:47] LABS: Albumin Globulin Ratio 1.2 (0.9-2); Albumin Level 3.5 gm/dl (3.4-5.0); BUN Creatinine Ratio 23.3 (10-20); Calcium 8.8 mg/dl (8.5-10.1); Creatinine Clr Calc Pharmacy 180.8 ml/min; Est GFR (African American) 140.7 ml/min; Est GFR (Non-African American) 121.4 ml/min; Globulin 2.9 gm/dl (2.5-4.0); Potassium 3.7 mmol/L (3.5-5.1); Total Protein 6.4 gm/dl (6.0-8.3)
[2022-02-17 07:18] LABS: Mean Corpuscular Hemoglobin 21.2 pg (25.0-34.0); Mean Corpuscular Hgb Conc 30.1 g/dL (32.0-36.0); Mean Corpuscular Volume 70.5 fL (80.0-100.0); Platelet Count 48 K/uL (130-400); RDW Coefficient of Variation 17.2 % (11.5-14.5); RDW Standard Deviation 43.7 fL (36.4-46.3); Red Blood Count 3.39 M/uL (4.63-6.08)
[2022-02-17 07:19] LABS: Basophils # (auto) 0.02 K/uL (0-0.2); Basophils % (auto) 0.9 %; Eosinophils # (auto) 0.16 K/uL (0-0.50); Eosinophils % (auto) 7.1 %; Hypochromasia Present; Lymphocytes % (auto) 22.3 %; Monocytes # (auto) 0.36 K/uL (0.24-0.82); Monocytes % (auto) 16.1 %; Neutrophils % (auto) 53.6 %; Ovalocytes 1+; Poikilocytosis Present; Polychromasia 1+; Tear Drop Cells 1+
[2022-02-17] MEDS: INSULIN ASPART PER UNIT SC SCH ×4 (08:12→20:48)
[2022-02-17] MEDS ORDERED: FUROSEMIDE 20 MG TAB PO SCH (09:00)
[2022-02-17] MEDS ORDERED: LOSARTAN POTASSIUM 25 MG TAB PO SCH (09:00)
[2022-02-17] MEDS: TOCOPHERYL, DL-ALPHA 400 UNITS 180 MG CAP PO SCH (09:03)
[2022-02-17] MEDS: SPIRONOLACTONE 25 MG TAB PO SCH (09:03)
[2022-02-17 09:53] LABS: Ferritin 3.5 ng/ml (8-388)
[2022-02-17] MEDS ORDERED: IRON SUCROSE 300 MG in SODIUM CHLORIDE 0.9% 250 ML IV ONE (11:00)
[2022-02-17 11:57] LABS: Hematocrit (blood only) 23.1 % (40.1-51.0); Hemoglobin 6.9 g/dl (14.0-18.0)
[2022-02-17] MEDS ORDERED: SODIUM CHLORIDE 0.9% 250 ML IV PRN (12:01)
--- NOTE | 2022-02-17 13:00 | Billing Data ---
Date of Service February 17, 2022 Coding Level of Care Code 31074 Subseq Hosp Care Lvl 3
--- NOTE | 2022-02-17 13:00 | Billing Data ---
Date of Service February 17, 2022 Coding Level of Care Code 39358 Subseq Obs Care Lvl 3
--- NOTE | 2022-02-17 14:21 | Electrocardiogram Report ---
Test Reason : Blood Pressure : / mmHG Vent. Rate : 078 BPM Atrial Rate : 078 BPM P-R Int : 158 ms QRS Dur : 076 ms QT Int : 396 ms P-R-T Axes : 027 -02 004 degrees QTc Int : 451 ms Normal sinus rhythm Normal ECG When compared with ECG of 19-MAY-2021 11:43, No significant change was found Confirmed by Berto Bruce ([id number]) on 02/17/2022 2:21:33 PM Referred By: Rosey Hu Confirmed By:Berto Bruce
--- NOTE | 2022-02-17 20:25 | Billing Data ---
Date of Service February 17, 2022 Coding Level of Care Code INT OBSERVATION CARE 70M LVL 3
[2022-02-17] MEDS ORDERED: PANTOprazole 40 MG in SYRINGE 0 ML IV SCH (21:00)
[2022-02-18 06:59] LABS: Hematocrit (blood only) 26.1 % (40.1-51.0); Hemoglobin 7.8 g/dl (14.0-18.0)
--- NOTE | 2022-02-18 07:26 | Discharge Summary ---
Date of Service February 18, 2022 Admission HPI Per Admitting Provider Patient is a 46 yo male with PMHx of cryptogenic liver disease (diagnosed 5-6 years ago), splenomegaly, esophageal varices, DM2, and HTN who presented to [facility] ER on 02/16/22 due to anemia. Patient states that he went to a wedding this past Tuesday (3 days ago) and on Tuesday he had nausea, vomiting, and diarrhea. Patient suspected that he had food poisoning. He took off from work yesterday due to generalized malaise and fatigue that was persistent. Patient contacted his PCP, Dr. Henson, who ordered outpatient labs which revealed a Hgb of 6.6. Patient notes that his baseline Hgb is 8-9. Due to his current medical conditions, patient notes that he is vigilant with regards to looking at stool output and emesis to monitor for bleeding; there has been no gross blood during BMs or with the recent episode of emesis over the weekend. Patient has had no coffee ground emesis. He is currently w/o abdominal pain or nausea. Patient reports some mild SOB and lightheadedness with positional changes but denies HEWITT, CP, leg pain, leg swelling, or any other symptoms. In the ER, patient's VSS. His Hgb was redraw and resulted at 7.1. Patient was typed and crossed and blood transfusion initiated with 1 unit PRBCs. Leukopenia noted at 2.95. Thrombocytopenia 54. INR 1.2. Mild hyponatremia with Na 134 otherwise no electrolyte abnormalities. Cr 0.71. Total bilirubin 1.6. Otherwise LFTs are wnl. COVID negative. To note, patient follows with Dr. Gutierrez, visual educator, at [facility]. Patient's last EGD was 3 months ago. If patient requires GI intervention/scope, he would prefer for these studies to be completed at [facility]. Admission Exam Per Admitting Provider GENERAL: Pleasant male, appears stated age, in no acute distress. Well developed and well nourished. Vital signs reviewed as above. EYES: PERRLA. EOMI. Anicteric sclerae. HENT: Moist mucous membranes. No pharyngeal erythema or exudates. RESPIRATORY: Clear to auscultation bilaterally. No wheezing, rales, or rhonchi. CARDIOVASCULAR: Regular rate and rhythm. No murmurs. No JVD. ABDOMEN: Soft, non-tender and non-distended. Normal bowel sounds. EXTREMITIES: No edema. Non-tender. SKIN: Warm, dry. No significant pallor. NEUROLOGIC: A/O x3. Normal speech. No focal neurological deficits. CN II-XII grossly intact. 5/5 strength in BUE and BLE. PSYCHIATRIC: Cooperative. Appropriate mood and affect. Principal Diagnosis doapa-pc-akedyii anemia Discharge Exam General: 46-year old male who is alert, oriented, and appears in no acute distress. HEENT: NCAT. - Eyes - Sclera are white, very mildly icteric, and without injection. - Mouth - MMM - Neck - supple, no appreciable JVD Cardiac: Normal rate and regular rhythm; S1 and S2 present with no murmurs, rubs, or gallops. Pulmonary: Good respiratory effort with symmetric expansion of the chest. No use of accessory muscles. Lungs were clear to auscultation bilaterally with no crackles or wheezes. Abdominal: Normoactive bowel sounds. Abdomen was soft, nondistended, and non- tender to palpation. Splenomegaly noted. Extremities: Upper and lower extremities are warm and well perfused. No peripheral edema in the lower extremities bilaterally Psych: Well-developed, well-nourished, appropriately dressed for occasion. Behavior is cooperative and appropriate. Affect is WNL. Insight is appropriate. Discharge Data Allergies Allergy/AdvReac Type Severity Reaction Status Date / Time No Known Allergies Allergy Verified 02/16/22 20:06 Consultations 02/16/22 20:28 ED Decision to Admit Stat Hospital Course (1) Cryptogenic cirrhosis of liver: Mr. Mohamud is a 46 yo male with PMHx of cryptogenic liver disease (diagnosed 5-6 years ago) with sequelae including splenomegaly and esophageal varices, DM2, and HTN admitted to [facility] 02/16/22 for nausea, vomiting, and fatigue, subsequently found to have brmch-bs-cewaojy anemia likely secondary to gastric source in the setting of known polyps. Hothl-qz-Hbvtkwf Anemia - Patient with acute on chronic anemia in the setting of cryptogenic cirrhosis and known esophageal varices and gastric polyps - Work-up as follows: - Patient notes that his baseline Hgb in 8.0 - 9.0 - Outpatient labs show Hgb 6.6 and ER Hgb 7.1 - Trough Hgb at 6.9 on 10/12 -- subsequently improved to 7.7 s/p 1U pRBC prior to discharge - Iron labs w/ iron deficiency pattern (Ferritin 7) - In the ER, stool guaiac testing with slightly positive -- likely reflective of chronic GIB with contribution from acute - No reported blood on bowel movements, melena, or hematemesis - Primarily suspect secondary to polypeal bleed rather than variceal in the setting of acute nausea/emesis prior to admission - Received 2U pRBC while here: tolerated well - Was on IV PPIs while here -- transitioned to PO prior to discharge - Given Venofer IV while here - recommend rechecking iron studies in 4-6 weeks and repeating IV repletion if indicated - Recheck CBC within 3-5 days of discharge - Arrange for close outpatient GI follow-up for EGD - patient prefers [facility] given his medical home is there. Scheduled for 02/25 Cryptogenic Cirrhosis and Esophageal Varices - Home regimen includes: carvedilol 6.25mg po BID, furosemide 20mg po daily, pantoprazole 40mg po BID, and spironolactone 50mg po daily - No sign of overt bleeding at this time, though trace positive heme-occult noted in the ED; patient with jkaas-cf-ibzunsj anemia - Patient's primary GI/transplant visual educator is Dr. Gutierrez at [facility] - will require close f/u after discharge for EGD - Continue Coreg, PPI on discharge DMII - Home regimen held on admission - Cover with ISS - Goal 100-140, CF 50, CR 20 - Plan to restart home medications on discharge HTN - Continue home carvedilol, spironolactone, Lasix at discharge - Hold Losartan until next medical follow-up Code - patient identified as FULL CODE while here (2) Esophageal varices: (3) DM II (diabetes mellitus, type II), controlled: (4) Hypertension: (5) Anemia: Total Time Total Time Spent Total Time Spent (In Minutes): <30 Discharge Plan Discharge Items Patient Disposition: Home - Self-Care Reason For Visit: ANEMIA, CRYPTOGENIC LIVER DISEASE Discharge Diagnosis: acute on chronic anemia Activity: Per Instructions section Non-emergency contact: Primary Care Provider and Net Developer Architect Call non-emergency contact if: your symptoms worsen and your temperature is above 101 Follow-up/Referrals: Rosey Hu MD [Primary Care Provider] - 02/26/22 10:10 am (THIS APPOINTMENT WILL BE WITH [facility] IN THE [facility] OFFICE.) Diet: Carb Consistent or DM2 Ambulatory Orders: Complete Blood Count no Diff (Routine) Timeframe: 5 Days Location: Determined by Patient Ordered By: Castillo Corona Attending Provider Instructions: You are seen in [facility] for evaluation of fatigue and low hemoglobin. Upon your arrival here, you were found to have hemoglobin of 7.1. You were given a blood transfusion to help relieve your symptoms and your blood levels. We primarily suspect that your blood levels dropped due to an acute GI bleed, likely from one of your stomach polyps. Your history of varices are considered, however, it seems more likely that any drop would have come from the polyps. While here, you also did receive an additional unit of blood. Prior to discharge, your hemoglobin level was 7.7. As we discussed, will be critical that you follow-up with your gastroentero logist at [facility] following discharge for EGD. Please have your blood counts checked within the next 3-5 days after discharge. Upon your discharge, please note the following medications additions/changes: Continue pantoprazole 40 mg twice daily until cleared by her directional bore operator Hold home losartan until cleared by your family physician/directional bore operator in the setting of an acute bleed Please follow-up with your primary care physician within the next 1 to 2 weeks to review this visit. In the interim, please also ensure that you follow-up with your directional bore operator -- you indicated that you have follow-up with them next (02/25) at [facility]. If you experience any worsening fatigue, lightheadedness, dizziness, shortness of breath, chest pain, abdominal pain, palpitations, bloody stool, bloody vomit, or very darkly discolored stool, please report to the ER immediately for evaluation. Is a pleasure for caring for you while here, we wish you all the best in your recovery. Pending Studies at Discharge: No Stand-Alone Forms: My [facility] [employer], Work/School Release, Smoking Cessation Medications and DC Order Prescriptions: Continued glimepiride 2 mg tablet 2 mg PO QAM pantoprazole 40 mg tablet,delayed release (DR/EC) 40 mg PO BID metformin 500 mg tablet 1,000 mg PO BID carvedilol 6.25 mg tablet 6.25 mg PO BID furosemide 20 mg tablet 20 mg PO DAILY spironolactone 50 mg tablet 50 mg PO DAILY metoclopramide HCl [Reglan] 5 mg tablet 5 mg PO TID PRN (Reason: nausea and vomiting) Qty: 20 0RF multivitamin Tablet 1 tab PO DAILY vitamin E 268 mg (400 unit) Capsule 268 mg PO DAILY cholecalciferol (vitamin D3) [Vitamin D3] 50 mcg (2,000 unit) Tablet 50 mcg PO DAILY Discontinued losartan 25 mg tablet 25 mg PO QAM Discharge Orders: Discharge Order (Routine); Ordered 02/18/22 Ordered By: Castillo Sarmiento/Other Patient Handouts: Anemia, ED Upper GI Bleeding (Stable) Admission Data Admit Date/Time: 02/16/22 21:40 Attending Provider: Castillo Oliver Admit Provider: Yesenia José Primary Care Provider: Rosey Hu Other Providers: Eleazar Aguilera Other Interventions: Discharge Summary Assessment (RN) Last Done: 02/18/22 09:33 Supervising Physician Co-Signing Physician Notes I personally examined the patient and verified all sheikh points of history and exam, discussed case, and agree with decision making with Dr Madera feeling OK overall. discussed situation, feels up to going home, has lab orders and appointment with [facility] GI for next week. vitals noted nad heent nc at mmm breathing unlabored no accessory muscles good effort skin no rashes no pallor or icterus neuro no focal deficits fe def anemia - likely chronic slow gi bleeding now more symptomatically manifest as Fe def has now precluded meaningful reticulocyte response -- transfused, gave iron. Stable for outpatient GI follow-up and further work-up. Weekly CBC, repeat iron studies in a few months. Resident Activity Tracking Resident Involvement: Resident Care Provided Care Provided: Adult Hospital Medicine
[2022-02-18] MEDS: TOCOPHERYL, DL-ALPHA 400 UNITS 180 MG CAP PO SCH (08:44)
[2022-02-18] MEDS: carvediloL 6.25 MG TAB PO SCH (08:44)
[2022-02-18] MEDS: SPIRONOLACTONE 25 MG TAB PO SCH (08:45)
[2022-02-18] MEDS: INSULIN ASPART PER UNIT SC SCH (08:46)
[2022-02-18] MEDS ORDERED: PANTOprazole 40 MG TAB PO SCH (09:00)
--- NOTE | 2022-02-18 16:40 | Billing Data ---
Date of Service February 18, 2022 Coding Level of Care Code 48969 OBS Care - Discharge
== END 2022-02-18 11:20 | disposition home or self-care (01) ==
LOC: 2S 17:00 → ED 17:00 → SUATTDRO 21:40 → 2S 22:28 → 2N 02-17 22:02

== ENCOUNTER 2022-12-11 21:05 | Observation (INO) ==
[2022-12-11 22:22] LABS: Basophils # (auto) 0.03 K/uL (0-0.2); Basophils % (auto) 1.1 %; Eosinophils % (auto) 3.6 %; Hematocrit (blood only) 35.4 % (42.0-52.0); Immature Granulocytes # (auto) 0.01 K/uL (0.01-0.20); Immature Granulocytes % (auto) 0.4 %; Lymphocytes # (auto) 0.38 K/uL (1.2-3.4); Lymphocytes % (auto) 13.5 %; Mean Corpuscular Hemoglobin 23.3 pg (25.0-34.0); Mean Corpuscular Hgb Conc 31.1 g/dL (32.0-36.0); Monocytes # (auto) 0.32 K/uL (0.11-0.59); Monocytes % (auto) 11.4 %; Neutrophils # (auto) 1.97 K/uL (1.40-6.50); Platelet Count 46 K/uL (130-400); RDW Coefficient of Variation 21.8 % (11.5-14.5); RDW Standard Deviation 57.7 fL (36.4-46.3); Red Blood Count 4.72 M/uL (4.70-6.10); White Blood Count 2.81 K/ul (4.8-10.8)
[2022-12-11] MEDS ORDERED: SODIUM CHLORIDE 0.9% 1000ML 1,000 ML IV ONE (22:22)
[2022-12-11 22:30] LABS: Albumin Level 4.3 gm/dl (3.4-5.0); BUN Creatinine Ratio 14.1 (10-20); Bilirubin,Total 2.9 mg/dl (0.2-1.0); Calcium 9.4 mg/dl (8.6-10.3); Creatinine Clr Calc Pharmacy 136.7 ml/min; Est GFR (African American) 125.5 ml/min; Est GFR (Non-African American) 108.3 ml/min; Globulin 4.3 gm/dl (2.5-4.0); Magnesium 1.9 mg/dl (1.7-2.4); Potassium 3.7 mmol/L (3.5-5.1); Total Protein 8.6 gm/dl (6.0-8.3)
--- NOTE | 2022-12-11 22:30 | Emergency Department Note ---
History of Present Illness General Chief complaint: Illness Stated complaint: TIPS PROCEDURE,NO BOWEL MOVEMENT,CONFUSED Time Seen by Provider: 12/11/22 22:13 Source: patient, family (Family is at the bedside) and RN notes reviewed Mode of arrival: ambulatory Limitations: no limitations History of Present Illness This patient is a 47-year-old male who has a history of cryptogenic cirrhosis, comes in after having confusion. He was seen in [place] at [facility] on December 02 and he had a TIPS procedure. His thought he was acting little bit weird this morning and he has had decreased bowel movements. He vomited once this morning was nonbloody she said throughout the day he was acting like a zombie and forgetful at times he seems confused. He has not gotten hepatic encephalopathy before. He has had no fever. Normal bowel meds no abdominal pain no chest pain or shortness of breath. She tried 1 dose of MiraLAX. They called the liver person in [place] and told to come to ER to rule out infection but they called in a prescription for MiraLAX as well. Home Medications Medication Instructions Recorded Confirmed Type glimepiride 2 mg tablet 2 mg PO QAM 12/01/20 12/11/22 History metformin 500 mg tablet 1,000 mg PO BID 12/01/20 12/11/22 History pantoprazole 40 mg tablet,delayed 40 mg PO BID 12/01/20 12/11/22 History release furosemide 20 mg tablet 20 mg PO DAILY 05/19/21 12/11/22 History metoclopramide HCl 5 mg tablet 5 mg PO TID PRN nausea and 05/19/21 12/11/22 Rx (Reglan) vomiting #20 tabs spironolactone 50 mg tablet 50 mg PO QAM 05/19/21 12/11/22 History cholecalciferol (vitamin D3) 50 50 mcg PO QAM 02/16/22 12/11/22 History mcg (2,000 unit) tablet (Vitamin D3) multivitamin 1 tab PO DAILY 02/16/22 12/11/22 History vitamin E 268 mg (400 unit) capsule 268 mg PO QAM 02/16/22 12/11/22 History losartan 25 mg tablet 25 mg PO QAM 12/11/22 12/11/22 History Allergies Allergy/AdvReac Type Severity Reaction Status Date / Time ferric derisomaltose Allergy Severe Difficulty Verified 12/11/22 23:30 [From Monoferric] Breathing Past Med/Surg History Medical History (Updated 12/12/22 @ 01:39 by Jean Carlos Gee MD) Cirrhosis Cryptogenic cirrhosis of liver Diabetes mellitus, type 2 Hx of Lyme disease Hypertension Liver disease Surgical History (Updated 12/12/22 @ 01:39 by Jean Carlos Gee MD) H/O arthroscopy of left knee S/P TIPS (transjugular intrahepatic portosystemic shunt) Social History Smoking Status: Never smoker Second Hand Exposure: No; Do You Dip or Chew Tobacco: No; Hx Alcohol Use: No Hx Substance Use: No Preferred Language: Thai Communication Ability: Effective Slab Stripper Required: No Beliefs That Will Affect Care: None Current Living Situation: Spouse and Parent Feels Safe at Home: Yes Assistive Devices: None Review of Systems A total of 10 systems reviewed and were otherwise negative Physical Exam Vital Signs Vital Signs - 24 hr 12/11/22 21:12 12/11/22 21:35 12/11/22 22:30 Temperature 36.8 C Temperature Source Temporal Artery Scan Pulse Rate 92 H 84 83 Pulse Rate [Finger] Pulse Rhythm Regular Pulse Rhythm [Finger] Pulse Strength Normal Pulse Strength [Finger] Respiratory Rate 20 20 Respiratory Effort / Characteristics Non-Labored Spontaneous Respiratory Depth Normal Blood Pressure 115/71 Blood Pressure [Left Arm] Blood Pressure Mean 85 Blood Pressure Mean [Left Arm] Blood Pressure Position [Left Arm] Pulse Oximetry 100 100 Oxygen Delivery Method Room Air Room Air Sepsis Recent Fever Within 48 Hours No Sepsis New/Unexplained Change in Mental Status N/A Sepsis Action Taken by Nursing No Action Required 12/11/22 23:58 12/12/22 01:21 Temperature Temperature Source Pulse Rate Pulse Rate [Finger] 85 84 Pulse Rhythm Pulse Rhythm [Finger] Regular Regular Pulse Strength Pulse Strength [Finger] Normal Normal Respiratory Rate 20 20 Respiratory Effort / Characteristics Non-Labored Spontaneous Non-Labored Spontaneous Respiratory Depth Normal Normal Blood Pressure Blood Pressure [Left Arm] 124/74 149/74 H Blood Pressure Mean Blood Pressure Mean [Left Arm] 90 99 Blood Pressure Position [Left Arm] Sitting Pulse Oximetry 100 99 Oxygen Delivery Method Room Air Room Air Sepsis Recent Fever Within 48 Hours Sepsis New/Unexplained Change in Mental Status Sepsis Action Taken by Nursing General: Well developed well nourished middle-age male who seems mildly confused but his eyes are open he follows commands in no acute distress, breathing comfortably on room air. Normal speech HEENT: Normal cephalic atraumatic. Pupils are equal round and reactive to light. Extraocular movements are intact. Oropharynx is pink with moist mucous membranes. No swelling of the mouth lips or tongue. Mild icterus Neck: Supple with a midline trachea. No meningeal signs or stiffness, no JVD or bruits. No Stridor. Chest: Clear to auscultation bilaterally. No wheezes or rhonchi. No increased work of breathing. Heart: Regular rate and rhythm without murmurs or gallops. Abdomen: Soft nontender, nondistended without rebound guarding or rigidity. Extremities: No cyanosis clubbing or edema. No calf tenderness or assymetry Spine/Back. Non tender to palpation. No CVA tenderness Skin: Good turgor without rashes. Mild jaundice Neurologic exam: Cranial nerves two through 12 are intact. Motor and sensation are intact and symmetrical throughout. No tremor or asterixis Course Administered Medications Discontinued Medications Sodium Chloride (Nss 1000ml) 1,000 mls @ 999 mls/hr IV .Q1H1M ONE Stop: 12/11/22 23:22 Last Infusion: 12/12/22 01:32 Dose: 0 mls/hr Documented By: Admin: 12/11/22 22:31 Dose: 999 mls/hr Documented By: ADAM Lactulose (Lactulose Syrup 30 Gm/45 Ml Udp) 30 gm PO NOW STA Stop: 12/11/22 23:47 Last Admin: 12/11/22 23:55 Dose: 30 gm Documented By: RYAN Medical Decision Making Differential Diagnosis Hepatic encephalopathy, infection, postprocedural complication, intracranial hemorrhage Laboratory Data 12/11/22 21:30 12/11/22 21:30 Lab Results 12/11/22 12/11/22 12/11/22 Range/Units 21:30 21:30 21:30 WBC 2.81 L (4.8-10.8) K/ul RBC 4.72 (4.70-6.10) M/uL Hgb 11.0 L (14.0-18.0) g/dl Hct 35.4 L (42.0-52.0) % MCV 75.0 L (80.0-100.0) fL MCH 23.3 L (25.0-34.0) pg MCHC 31.1 L (32.0-36.0) g/dL RDW Std Deviation 57.7 H (36.4-46.3) fL RDW Coeff of Samy 21.8 H (11.5-14.5) % Plt Count 46 L (130-400) K/uL Immature Gran % (Auto) 0.4 % Neut % (Auto) 70.0 % Lymph % (Auto) 13.5 % Gilchrist % (Auto) 11.4 % Eos % (Auto) 3.6 % Baso % (Auto) 1.1 % Neut # (Auto) 1.97 (1.40-6.50) K/uL Lymph # (Auto) 0.38 L (1.2-3.4) K/uL Gilchrist # (Auto) 0.32 (0.11-0.59) K/uL Eos # (Auto) 0.10 (0-0.50) K/uL Baso # (Auto) 0.03 (0-0.2) K/uL Immature Gran # (Auto) 0.01 (0.01-0.20) K/uL PT 13.0 H (9.0-12.0) Seconds INR 1.2 H (0.9-1.1) APTT 25.8 (21.0-31.0) Seconds PTT Ratio 0.9 Sodium 129 L (136-145) mmol/L Potassium 3.7 (3.5-5.1) mmol/L Chloride 97 L (98-107) mmol/L Carbon Dioxide 20 L (21-32) mmol/L Anion Gap 12 H (3-11) BUN 11 (6-23) mg/dl Creatinine 0.78 (0.6-1.4) mg/dl Est Cr Clr Drug Dosing 136.7 ml/min Est GFR ( Amer) 125.5 ml/min Est GFR (Non-Af Amer) 108.3 ml/min BUN/Creatinine Ratio 14.1 (10-20) Glucose 246 H (70-99(Fasting)) mg/dl Lactate (0.4-2.0) mmol/L Calcium 9.4 (8.6-10.3) mg/dl Magnesium 1.9 (1.7-2.4) mg/dl Total Bilirubin 2.9 H (0.2-1.0) mg/dl AST 37 (13-39) U/L ALT 58 H (7-52) U/L Alkaline Phosphatase 86 (34-104) U/L Ammonia (18-72) umol/L Total Protein 8.6 H (6.0-8.3) gm/dl Albumin 4.3 (3.4-5.0) gm/dl Globulin 4.3 H (2.5-4.0) gm/dl Albumin/Globulin Ratio 1.0 (0.9-2) Lipase 22 (11-82) U/L Blood Type Antibody Screen 12/11/22 12/11/22 12/11/22 Range/Units 22:31 22:31 22:31 WBC (4.8-10.8) K/ul RBC (4.70-6.10) M/uL Hgb (14.0-18.0) g/dl Hct (42.0-52.0) % MCV (80.0-100.0) fL MCH (25.0-34.0) pg MCHC (32.0-36.0) g/dL RDW Std Deviation (36.4-46.3) fL RDW Coeff of Samy (11.5-14.5) % Plt Count (130-400) K/uL Immature Gran % (Auto) % Neut % (Auto) % Lymph % (Auto) % Gilchrist % (Auto) % Eos % (Auto) % Baso % (Auto) % Neut # (Auto) (1.40-6.50) K/uL Lymph # (Auto) (1.2-3.4) K/uL Gilchrist # (Auto) (0.11-0.59) K/uL Eos # (Auto) (0-0.50) K/uL Baso # (Auto) (0-0.2) K/uL Immature Gran # (Auto) (0.01-0.20) K/uL PT (9.0-12.0) Seconds INR (0.9-1.1) APTT (21.0-31.0) Seconds PTT Ratio Sodium (136-145) mmol/L Potassium (3.5-5.1) mmol/L Chloride (98-107) mmol/L Carbon Dioxide (21-32) mmol/L Anion Gap (3-11) BUN (6-23) mg/dl Creatinine (0.6-1.4) mg/dl Est Cr Clr Drug Dosing ml/min Est GFR ( Amer) ml/min Est GFR (Non-Af Amer) ml/min BUN/Creatinine Ratio (10-20) Glucose (70-99(Fasting)) mg/dl Lactate 4.9 H* (0.4-2.0) mmol/L Calcium (8.6-10.3) mg/dl Magnesium (1.7-2.4) mg/dl Total Bilirubin (0.2-1.0) mg/dl AST (13-39) U/L ALT (7-52) U/L Alkaline Phosphatase (34-104) U/L Ammonia 118.0 H (18-72) umol/L Total Protein (6.0-8.3) gm/dl Albumin (3.4-5.0) gm/dl Globulin (2.5-4.0) gm/dl Albumin/Globulin Ratio (0.9-2) Lipase (11-82) U/L Blood Type A Positive Antibody Screen NEGATIVE 12/12/22 Range/Units 00:54 WBC (4.8-10.8) K/ul RBC (4.70-6.10) M/uL Hgb (14.0-18.0) g/dl Hct (42.0-52.0) % MCV (80.0-100.0) fL MCH (25.0-34.0) pg MCHC (32.0-36.0) g/dL RDW Std Deviation (36.4-46.3) fL RDW Coeff of Samy (11.5-14.5) % Plt Count (130-400) K/uL Immature Gran % (Auto) % Neut % (Auto) % Lymph % (Auto) % Gilchrist % (Auto) % Eos % (Auto) % Baso % (Auto) % Neut # (Auto) (1.40-6.50) K/uL Lymph # (Auto) (1.2-3.4) K/uL Gilchrist # (Auto) (0.11-0.59) K/uL Eos # (Auto) (0-0.50) K/uL Baso # (Auto) (0-0.2) K/uL Immature Gran # (Auto) (0.01-0.20) K/uL PT (9.0-12.0) Seconds INR (0.9-1.1) APTT (21.0-31.0) Seconds PTT Ratio Sodium (136-145) mmol/L Potassium (3.5-5.1) mmol/L Chloride (98-107) mmol/L Carbon Dioxide (21-32) mmol/L Anion Gap (3-11) BUN (6-23) mg/dl Creatinine (0.6-1.4) mg/dl Est Cr Clr Drug Dosing ml/min Est GFR ( Amer) ml/min Est GFR (Non-Af Amer) ml/min BUN/Creatinine Ratio (10-20) Glucose (70-99(Fasting)) mg/dl Lactate 4.0 H* (0.4-2.0) mmol/L Calcium (8.6-10.3) mg/dl Magnesium (1.7-2.4) mg/dl Total Bilirubin (0.2-1.0) mg/dl AST (13-39) U/L ALT (7-52) U/L Alkaline Phosphatase (34-104) U/L Ammonia (18-72) umol/L Total Protein (6.0-8.3) gm/dl Albumin (3.4-5.0) gm/dl Globulin (2.5-4.0) gm/dl Albumin/Globulin Ratio (0.9-2) Lipase (11-82) U/L Blood Type Antibody Screen Imaging Data My Impression: Head CT- no hemorrhage or mass effect upon my evaluation Chest xray- No acute infiltrate failure or pneumothorax Radiologist's Impression: Chest X-Ray 12/11/22 22:19 SINGLE VIEW CHEST CLINICAL HISTORY: Change in mental status. FINDINGS: An AP, portable, upright chest radiograph is compared to chest x-ray and chest CT dated 05/19/2021. The cardiomediastinal silhouette is unremarkable. There is mild bibasilar scarring/atelectasis. The lungs and pleural spaces are otherwise clear. No pneumothorax is seen. The bony thorax is grossly intact. A punctate metallic foreign body projects over the lower chest at the level of the diaphragm. IMPRESSION: 1. No active disease in the chest. 2. A punctate metallic foreign body projects over the lower chest. ACT 112: Negative or not required by law. Electronically signed by: Melchor Ness M.D. 12/11/2022 10:[address] 12/11/22 22:22 CT SCAN OF THE BRAIN WITHOUT IV CONTRAST CLINICAL HISTORY: Change in mental status. COMPARISON STUDY: No priors. TECHNIQUE: Unenhanced axial CT scan of the brain is performed from the vertex to the skull base. A dose lowering technique was utilized adhering to the principles of ALARA. CT DOSE: 625.80 mGy.cm FINDINGS: Brain parenchyma: The brain parenchyma is normal in appearance. There is no hemorrhage, mass effect, or evidence of acute territorial ischemia by CT criteria. Bryant-white matter differentiation is preserved. No extra-axial fluid collection is seen. Ventricles, sulci, cisterns: Normal in configuration. Intracranial vasculature: The visualized intracranial vasculature at the skull base is normal in appearance. Calvarium: Unremarkable. Sinuses and mastoids: The visualized paranasal sinuses are clear. The mastoid air cells are well pneumatized. Orbits: The bony orbits are grossly intact. IMPRESSION: No acute intracranial abnormality. ACT 112: Negative or not required by law. Electronically signed by: Melchor Ness M.D. 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 He is here for treatment evaluation of confusion and bizarre behavior. He does have a history of cryptogenic cirrhosis and has had procedures done at [facility] presby on the he had been doing well until this morning he had no fever he did vomit once but it was nonbloody. He has had no cough no abdominal pain. On my exam, he is awake but somewhat confused. he appears in no distress. he does not appear to have any tremor . IV access established and blood work was obtained. chest x-rays not show congestive heart failure, pneumonia or pn eumothorax. His white count was not elevated. he does have some chronic low white count and low platelets. Head CT was unremarkable and he had no hemorrhage or mass effect. His LFTs are not significantly elevated. His lactic acid was elevated at 4.9 this is likely from his liver disease as there is no other signs to suggest sepsis or infection at this point. His ammonia was also elevated 112 and he has not had a bowel movement for couple days and likely has hepatic encephalopathy. I did give him lactulose 30 g p.o. I do think he needs to be admitted. I consulted the admitting team and discussed the case with him. And Dr. Small and his team saw the patient and will be admitted him they did ask that I talked to the [facility] team to ensure that there is no reason to send the patient down to [facility]. I talked to a Dr. Bran Brock who is covering for Dr. Gutierrez, who is the patient's wind tunnel mechanic. He agreed and will pass the information onto the team tomorrow but did not feel there is any acute reason to transfer the patient tonight and agrees with the lactulose. The family was h appy with the plan and will be admitted/observed for these measures. Impression & Plan Acute hepatic encephalopathy, Cryptogenic cirrhosis of liver, S/P TIPS (transjugular intrahepatic portosystemic shunt), Thrombocytopenia Discharge Plan Visit Data Chief Complaint: Illness Stated Complaint: TIPS PROCEDURE,NO BOWEL MOVEMENT,CONFUSED ED Provider: Jean Carlos Gee Discharge Problem: Acute hepatic encephalopathy, Cryptogenic cirrhosis of liver, S/P TIPS (tra nsjugular intrahepatic portosystemic shunt), Thrombocytopenia Forms Stand Alone Forms: My [facility] Prescriptions Prescriptions: No Action glimepiride 2 mg tablet 2 mg PO QAM pantoprazole 40 mg tablet,delayed release (DR/EC) 40 mg PO BID metformin 500 mg tablet 1,000 mg PO BID furosemide 20 mg tablet 20 mg PO DAILY spironolactone 50 mg tablet 50 mg PO QAM metoclopramide HCl [Reglan] 5 mg tablet 5 mg PO TID PRN (Reason: nausea and vomiting) Qty: 20 0RF multivitamin Tablet 1 tab PO DAILY vitamin E 268 mg (400 unit) Capsule 268 mg PO QAM cholecalciferol (vitamin D3) [Vitamin D3] 50 mcg (2,000 unit) Tablet 50 mcg PO QAM losartan 25 mg tablet 25 mg PO QAM Referrals Referrals: Rosey Hu MD [Primary Care Provider] -
[2022-12-11 22:42] LABS: INR 1.2 (0.9-1.1); Partial Thromboplastin Ratio 0.9; Partial Thromboplastin Time 25.8 Seconds (21.0-31.0)
--- NOTE | 2022-12-11 22:45 | XRay Report ---
SINGLE VIEW CHEST CLINICAL HISTORY: Change in mental status. FINDINGS: An AP, portable, upright chest radiograph is compared to chest x-ray and chest CT dated 05/09. The cardiomediastinal silhouette is unremarkable. There is mild bibasilar scarring/atelectasi s. The lungs and pleural spaces are otherwise clear. No pneumothorax is seen. The bony thorax is denise sly intact. A punctate metallic foreign body projects over the lower chest at the level of the diaphr agm. IMPRESSION: 1. No active disease in the chest. 2. A punctate metallic foreign body projects over the lower chest. ACT 112: Negative or not required by law. Electronically signed by: Melchor Ness M.D. 12/11/2022 10:43 PM
--- NOTE | 2022-12-11 22:49 | CT Scan Report ---
CT SCAN OF THE BRAIN WITHOUT IV CONTRAST CLINICAL HISTORY: Change in mental status. COMPARISON STUDY: No priors. TECHNIQUE: Unenhanced axial CT scan of the brain is performed from the vertex to the skull base. A d ose lowering technique was utilized adhering to the principles of ALARA. CT DOSE: 625.80 mGy.cm FINDINGS: Brain parenchyma: The brain parenchyma is normal in appearance. There is no hemorrhage, mass effect, or evidence of acute territorial ischemia by CT criteria. Bryant-white matter differentiation is preser betty. No extra-axial fluid collection is seen. Ventricles, sulci, cisterns: Normal in configuration. Intracranial vasculature: The visualized intracranial vasculature at the skull base is normal in appe arance. Calvarium: Unremarkable. Sinuses and mastoids: The visualized paranasal sinuses are clear. The mastoid air cells are well pneu matized. Orbits: The bony orbits are grossly intact. IMPRESSION: No acute intracranial abnormality. ACT 112: Negative or not required by law. Electronically signed by: Melchor Ness M.D. 12/11/2022 10:48 PM
[2022-12-11] MEDS ORDERED: LACTULOSE SYRUP 30 GM/45 ML UDP PO STA (23:46)
--- NOTE | 2022-12-12 01:28 | History & Physical Report ---
Date of Service December 12, 2022 Assessment & Plan (1) Acute hepatic encephalopathy: Plan: Patient presents with Hepatic Encephalopathy s/p TIPS procedure - Grade I Encephalopathy - Ammonia 118- initiate Lactulose 30GM TID- titrate for 3 BM per day- follow neurologic exams and ammonia - INR 1.2 - stable- no evidence of bleeding noted - Continue infectious workup- blood cx pending, UA pending, CT abd/pelvis with IV contrast eval for any fluid collections/obstructions/thrombus - lactate level 4.9- unclear utility with cirrhosis and s/p TIPS- but follow - continue with one more liter of plasmalyte - No ascites noted on exam - CT head negative for cerebral edema or other acute process - LFTs mild bump in ASt to 58, Bilirubin at his baseline of ~2.9 - DMII diet- consider low protein - Will obtain Urine tox screen, ETOH level, and Tylenol level. - Hold PPI until encephalopathy clears- possible aggravating factor (2) S/P TIPS (transjugular intrahepatic portosystemic shunt): Plan: As above - Follows with Dr. Gutierrez at [facility] (3) Hyponatremia: Plan: Likely related to #1- will continue with another liter of Plasmalyte to ensure euvolemia - avoid hypotonic fluids with hyponatremia and with cirrhosis (4) Thrombocytopenia: Plan: Chronic- stable - Continue with VTE prophy with SCDS and Lovenox sub q (5) Hypertension: Plan: Carvedilol discontinued following TIPS - Continue with Lasix and Spironalactone for his cirrhosis and BP control (6) Cryptogenic cirrhosis of liver: Plan: Chronic- treated recently with TIPS (7) Esophageal varices: Plan: Recent EGD's not available in system for review - s/p TIPS - follow for any bleeding (8) DM II (diabetes mellitus, type II), controlled: Plan: Carb consistent diet - hold oral agents - Insulin sliding scale- CF 20 with ratio 1:15 History of Present Illness Primary Care Provider: Rosey Hu MD 47 YOM with medical history of: DMII, HTN, Gastroparesis, Cryptogenic Cirrhosis, Esophageal Varices, Thrombocytopenia, DMII. Patient presents to the EMD today for 1 day history of alteration in mentation in the setting of post TIPS procedure on 12/02/22. Patient is accompanied by his and mother. and patient state that he has felt increasingly tired today, and slower to respond and perform tasks. He reports that he has not had a bowel movement today, but denies any abdominal pain. Denies headache or visual changes. Reports eating and drinking well. The did call their Inside Sales Supervisor office and was directed to come to the EMD for concern of occult infection. In the EMD the patient had routine labs performed, blood cultures, and UA obtained, chest x- ray, and CT scan of his head performed. His head was negative for any cerebral edema or acute changes. His CXR was without opacifications. Labs were notable for Ammonia level of 118, lactate of 4.9. His INR is stable at 1.2, NA level at 129, Platelets at his baseline 49. Patient case was requested to be discussed with EMD and Inside Sales Supervisor at [facility] regarding ammonia level increase following TIPS procedure. It was felt patient can be followed here and if refractory Hepatic Encephalopathy and refractory ammonia level then let [facility] Hepatology now. His Inside Sales Supervisor is: Dr. Gutierrez at [facility] Patient is FULL CODE Allergies Allergy/AdvReac Type Severity Reaction Status Date / Time ferric derisomaltose Allergy Severe Difficulty Verified 12/11/22 23:30 [From Monoferric] Breathing Home Medications Medication Instructions Recorded Confirmed Type glimepiride 2 mg tablet 2 mg PO QAM 12/01/20 12/11/22 History metformin 500 mg tablet 1,000 mg PO BID 12/01/20 12/11/22 History pantoprazole 40 mg tablet,delayed 40 mg PO BID 12/01/20 12/11/22 History release furosemide 20 mg tablet 20 mg PO DAILY 05/19/21 12/11/22 History metoclopramide HCl 5 mg tablet 5 mg PO TID PRN nausea and 05/19/21 12/11/22 Rx (Reglan) vomiting #20 tabs spironolactone 50 mg tablet 50 mg PO QAM 05/19/21 12/11/22 History cholecalciferol (vitamin D3) 50 50 mcg PO QAM 02/16/22 12/11/22 History mcg (2,000 unit) tablet (Vitamin D3) multivitamin 1 tab PO DAILY 02/16/22 12/11/22 History vitamin E 268 mg (400 unit) capsule 268 mg PO QAM 02/16/22 12/11/22 History losartan 25 mg tablet 25 mg PO QAM 12/11/22 12/11/22 History Past Med/Surg History Medical History (Updated 12/12/22 @ 01:39 by RIO Bone) Cirrhosis Cryptogenic cirrhosis of liver Diabetes mellitus, type 2 Hx of Lyme disease Hypertension Liver disease Surgical History (Updated 12/12/22 @ 01:39 by Jean Carlos Gee MD) H/O arthroscopy of left knee S/P TIPS (transjugular intrahepatic portosystemic shunt) Social History Smoking Status: Never smoker Second Hand Exposure: No; Do You Dip or Chew Tobacco: No; Tobacco Cessation Education Requested by Patient: No Hx Alcohol Use: No Hx Substance Use: No Preferred Language: Botswanan Communication Ability: Effective Environmental Service Aide Required: No Beliefs That Will Affect Care: None Current Living Situation: Spouse Other Information That Helps Us Care for You: No Feels Safe at Home: Yes Safety Concerns: Feels Safe At This Time Assistive Devices: Glasses Review of Systems Review of Systems: REVIEW OF SYSTEMS: Constitutional: No fever, sweats or chills Eyes: No diplopia, no worsening or blurred vision ENT: normal hearing, no trouble swallowing Respiratory: No cough, sputum, dyspnea at rest or on exertion Cardiovascular: No chest pain, tightness or palpitations Abdomen: (+) constipation, No pain, nausea, vomiting, diarrhea Musculoskeletal: No joint pain, calf pain, swelling Neurologic: (+) (+) sleepiness, confusion, No weakness, numbness/tingling, or balance problems Psychiatric: No anxiety or depression Skin: No rash or itch Physical Exam Physical Exam: PHYSICAL EXAM: General: Sleepy, appropriate, slow to respond Head: Normocephalic, atraumatic ENT: PERRL, EOMI, no nystagmus, no icterus, no pharyngeal exudate, mucous membranes moist Neuro: AAO x 3, speech clear and appropriate, strength intact bilaterally 5/5, sensation intact and equal all extremities and dermatomes, no pronator drift, no asterixis Chest: equal rise and fall of the chest, no accessory muscle use, no heaves or thrills, Clear to auscultation, on room air, Cardiac: Regular rate and rhythm, telemetry reviewed, skin warm dry, cap refill <3 seconds, peripheral pulses +2 no JVD, no murmur, no edema GI: NABS x 4 quadrants, soft, nontender to palpation, no rebound, guarding or tenderness, no ascites : Spontaneously voiding, no pain, no CVA tenderness, Psych: Normal mood and affect Skin: no rash or erythema Results & Data Results & Data Vital Signs (Past 12 Hours) Vital Signs Temp Pulse Pulse Resp BP BP Pulse Ox 12/11/22 23:58 85 20 124/74 100 12/11/22 22:30 83 20 100 12/11/22 21:35 84 12/11/22 21:12 36.8 C 92 H 20 115/71 100 O2 Del Method 12/11/22 23:58 Room Air 12/11/22 22:30 Room Air 12/11/22 21:35 12/11/22 21:12 Room Air Laboratory Results Abnormal lab results 12/11/22 12/11/22 12/11/22 Range/Units 21:30 21:30 21:30 WBC 2.81 L (4.8-10.8) K/ul Hgb 11.0 L (14.0-18.0) g/dl Hct 35.4 L (42.0-52.0) % MCV 75.0 L (80.0-100.0) fL MCH 23.3 L (25.0-34.0) pg MCHC 31.1 L (32.0-36.0) g/dL RDW Std Deviation 57.7 H (36.4-46.3) fL RDW Coeff of Samy 21.8 H (11.5-14.5) % Plt Count 46 L (130-400) K/uL Lymph # (Auto) 0.38 L (1.2-3.4) K/uL PT 13.0 H (9.0-12.0) Seconds INR 1.2 H (0.9-1.1) Sodium 129 L (136-145) mmol/L Chloride 97 L (98-107) mmol/L Carbon Dioxide 20 L (21-32) mmol/L Anion Gap 12 H (3-11) Glucose 246 H (70-99(Fasting)) mg/dl Lactate (0.4-2.0) mmol/L Total Bilirubin 2.9 H (0.2-1.0) mg/dl ALT 58 H (7-52) U/L Ammonia (18-72) umol/L Total Protein 8.6 H (6.0-8.3) gm/dl Globulin 4.3 H (2.5-4.0) gm/dl 12/11/22 12/11/22 12/12/22 Range/Units 22:31 22:31 00:54 WBC (4.8-10.8) K/ul Hgb (14.0-18.0) g/dl Hct (42.0-52.0) % MCV (80.0-100.0) fL MCH (25.0-34.0) pg MCHC (32.0-36.0) g/dL RDW Std Deviation (36.4-46.3) fL RDW Coeff of Samy (11.5-14.5) % Plt Count (130-400) K/uL Lymph # (Auto) (1.2-3.4) K/uL PT (9.0-12.0) Seconds INR (0.9-1.1) Sodium (136-145) mmol/L Chloride (98-107) mmol/L Carbon Dioxide (21-32) mmol/L Anion Gap (3-11) Glucose (70-99(Fasting)) mg/dl Lactate 4.9 H* 4.0 H* (0.4-2.0) mmol/L Total Bilirubin (0.2-1.0) mg/dl ALT (7-52) U/L Ammonia 118.0 H (18-72) umol/L Total Protein (6.0-8.3) gm/dl Globulin (2.5-4.0) gm/dl Diagnostic Findings Chest X-Ray 12/11/22 22:19 SINGLE VIEW CHEST CLINICAL HISTORY: Change in mental status. FINDINGS: An AP, portable, upright chest radiograph is compared to chest x-ray and chest CT dated 05/19/2021. The cardiomediastinal silhouette is unremarkable. There is mild bibasilar scarring/atelectasis. The lungs and pleural spaces are otherwise clear. No pneumothorax is seen. The bony thorax is grossly intact. A punctate metallic foreign body projects over the lower chest at the level of the diaphragm. IMPRESSION: 1. No active disease in the chest. 2. A punctate metallic foreign body projects over the lower chest. ACT 112: Negative or not required by law. Electronically signed by: Melchor Ness M.D. 12/11/2022 10:[address] 12/11/22 22:22 CT SCAN OF THE BRAIN WITHOUT IV CONTRAST CLINICAL HISTORY: Change in mental status. COMPARISON STUDY: No priors. TECHNIQUE: Unenhanced axial CT scan of the brain is performed from the vertex to the skull base. A dose lowering technique was utilized adhering to the principles of ALARA. CT DOSE: 625.80 mGy.cm FINDINGS: Brain parenchyma: The brain parenchyma is normal in appearance. There is no hemorrhage, mass effect, or evidence of acute territorial ischemia by CT criteria. Bryant-white matter differentiation is preserved. No extra-axial fluid collection is seen. Ventricles, sulci, cisterns: Normal in configuration. Intracranial vasculature: The visualized intracranial vasculature at the skull base is normal in appearance. Calvarium: Unremarkable. Sinuses and mastoids: The visualized paranasal sinuses are clear. The mastoid air cells are well pneumatized. Orbits: The bony orbits are grossly intact. IMPRESSION: No acute intracranial abnormality. ACT 112: Negative or not required by law. Electronically signed by: Melchor Ness M.D. 12/11/2022 10:48 PM Medications Administered Discontinued Medications Sodium Chloride (Nss 1000ml) 1,000 mls @ 999 mls/hr IV .Q1H1M ONE Stop: 12/11/22 23:22 Last Infusion: 12/12/22 01:32 Dose: 0 mls/hr Documented By: Admin: 12/11/22 22:31 Dose: 999 mls/hr Documented By: ADAM Lactulose (Lactulose Syrup 30 Gm/45 Ml Udp) 30 gm PO NOW STA Stop: 12/11/22 23:47 Last Admin: 12/11/22 23:55 Dose: 30 gm Documented By: RYAN Code Status & VTE Plan VTE Prophylaxis Plan VTE Prophylaxis will be ordered: Yes Supervising Physician Co-Signing Physician Notes Attending addendum: I have physically seen this patient, have supervised the KATHY's activities, and agree with the H&P unless as otherwise noted. Assessment and Plan: Hepatic encephalopathy/status post TIPS/cryptogenic liver cirrhosis/esophageal varices- Ammonia level 118 Lactate 4.9 ALT [address] scan abdomen pelvis with IV contrast to assess for any signs of infection CT head negative for acute event Start lactulose 30 g 3 times daily, titrate to 3 BMs per day, first dose given in the ED, and follow ammonia level serially Conversation with hepatology at [facility], on-call for Dr. Gutierrez. Continued conversation with that service with daytime hospitalist Continue pantoprazole 40 mg p.o. twice daily, spironolactone 50 mg every morning Hyponatremia- Sodium 129 Plasma-Lyte 1 L additional as noted Repeat laboratories in a.m. Thrombocytopenia platelets 46, stable compared to previous VTE prophylaxis with SCDs Diabetes mellitus- Hold metformin and glimepiride Placed on Accu-Cheks with NovoLog SSI Remaining orders and notations as noted PG Care Time/CCT Total # of Minutes Spent Total Time Spent with Patient: Total time spent is greater than 50% in coordination of care (as documented) at patient's floor/unit and/or counseling patient: Coding Level of Care Code 29664 INT INP/OBS CARE 3/75MIN Diagnoses Acute hepatic encephalopathy K76.82 S/P TIPS (transjugular intrahepatic portosystemic shunt) Z95.828 Hyponatremia E87.1 Thrombocytopenia D69.6 Hypertension I10 Cryptogenic cirrhosis of liver K74.69 Esophageal varices I85.11 Esophageal varices bleeding: with bleeding Esophageal varices type: secondary DM II (diabetes mellitus, type II), controlled E11.9 (7) Esophageal varices Esophageal varices bleeding: with bleeding Esophageal varices type: secondary Qualified Code(s): I85.11 - Secondary esophageal varices with bleeding
[2022-12-12] MEDS ORDERED: OPTIRAY 320 100ml IV ONE (02:48)
[2022-12-12] MEDS ORDERED: DEXTROSE 50% 50 ML SYRINGE IV PRN (03:17)
[2022-12-12] MEDS ORDERED: CARBOHYDRATES FOR HYPOGLYCEMIA PO PRN (03:17)
[2022-12-12] MEDS ORDERED: METOCLOPRAMIDE HCL 5 MG TABLET PO PRN (03:17)
[2022-12-12] MEDS ORDERED: GLUCOSE 10 TAB/TUBE PO PRN (03:17)
[2022-12-12] MEDS ORDERED: PLASMA-LYTE A 1,000 ML IV SCH (03:17)
[2022-12-12] MEDS ORDERED: GLUCAGON FOR INJ 1 MG VIAL SQ PRN (03:17)
[2022-12-12] MEDS ORDERED: GLUCOSE 40% GEL 15 GM TUBE PO PRN (03:17)
[2022-12-12 03:38] LABS: Appearance Urine Clear (Clear); Bilirubin Urine Negative (Negative); Blood Urine Negative (Negative); Color Urine Yellow; Glucose Urine UA 2+ (Negative); Ketones Urine Trace (Negative); Leukocyte Esterase Urine Negative (Negative); Nitrite Urine Negative (Negative); Protein Urine Negative (Negative); Specific Gravity Urine 1.032 (1.000-1.030); Urobilinogen Urine Positive (Negative)
[2022-12-12 04:27] LABS: BUN Creatinine Ratio 13.8 (10-20); Calcium 8.8 mg/dl (8.6-10.3); Creatinine Clr Calc Pharmacy 164.9 ml/min; Est GFR (African American) 135.2 ml/min; Est GFR (Non-African American) 116.7 ml/min; Magnesium 1.8 mg/dl (1.7-2.4); Potassium 3.6 mmol/L (3.5-5.1)
[2022-12-12 04:57] LABS: Anisocytosis Present; Basophils # (auto) 0.03 K/uL (0-0.2); Basophils % (auto) 1.3 %; Eosinophils # (auto) 0.09 K/uL (0-0.50); Eosinophils % (auto) 3.9 %; Hematocrit (blood only) 32.7 % (42.0-52.0); Hemoglobin 10.1 g/dl (14.0-18.0); Lymphocytes # (auto) 0.38 K/uL (1.2-3.4); Lymphocytes % (auto) 16.4 %; Mean Corpuscular Hgb Conc 30.9 g/dL (32.0-36.0); Mean Corpuscular Volume 74.5 fL (80.0-100.0); Monocytes # (auto) 0.33 K/uL (0.11-0.59); Monocytes % (auto) 14.2 %; Neutrophils # (auto) 1.49 K/uL (1.40-6.50); Neutrophils % (auto) 64.2 %; Platelet Count 42 K/uL (130-400); Platelet Estimate Decreased (Normal); RDW Coefficient of Variation 21.7 % (11.5-14.5); RDW Standard Deviation 57.4 fL (36.4-46.3); Red Blood Count 4.39 M/uL (4.70-6.10); White Blood Count 2.32 K/ul (4.8-10.8)
--- NOTE | 2022-12-12 06:12 | Billing Data ---
Date of Service December 12, 2022 Coding Level of Care Code 52051 INT INP/OBS CARE
--- NOTE | 2022-12-12 07:16 | Hospitalist Progress Note ---
Date of Service December 12, 2022 Assessment & Plan (1) Acute hepatic encephalopathy: (2) S/P TIPS (transjugular intrahepatic portosystemic shunt): (3) Hyponatremia: (4) Thrombocytopenia: (5) Hypertension: (6) Cryptogenic cirrhosis of liver: (7) Esophageal varices: (8) DM II (diabetes mellitus, type II), controlled: Plan #Acute Hepatic Encephalopathy Grade I Ammonia 118 @ admission - Lactulose 30g TID, goal 3 BM/day Will keep overnight one more night for observation, plan for d/c 12/13/22. Prior to discharge, important to have conversation w/ patient and re: importance of lactulose and signs to watch for so that he does not become hyperammonemic again, which is likely to happen in the absence of lactulose intake. UA w/o evidence of UTI CT head w/o suggestion of acute process f/u blood culture, unlikely source of altered mental status Extended tox screen ordered by ED still pending. CT abdomen demonstrates widespread thrombus throughout the liver, hepatosplenomegaly hold PPI #Cryptogenic Cirrhosis of Liver Follows at [facility] Dr. Gutierrez #S/P TIPS Procedure 12/02/22 #Hyponatremia Improved overnight 129-->132 #Thrombocytopenia INR 1.2 stable, platelets 42 No signs of bleeding #Esophageal Varices no sign of active bleeding #HTN lasix and spironolactone #T2DM Accuchecks, SSI Admission and Anticipated Discharge Date Admission Date: December 12, 2022 Supervising Physician Co-Signing Physician Notes I personally examined the patient and verified all sheikh points of history and exam, discussed case, and agree with decision making with Dr Lubin feeling better more mentally clear discussed situation Vitals noted, in general he is awake and alert oriented, actually remembers me from a brief hospital stay in the fall, no distress. Breathing unlabored no accessory muscle use good effort. Skin shows no rashes no pallor or icterus. Neuro without focal deficits. Hepatic encephalopathyunsurprising given the status post TIPS. Lactuloseimproving. Fortunately essentially no ascites, and given how much he is improved, while SBP is of course always on the differential, it seems exceedingly unlikely for himparticularly given that there does not appear to even be enough ascites to tap. Follow into tomorrow, hopefully home soon, discussed trying to titrate lactulose to lowest necessary dose. Subjective 47 yo male PMHx Cryptogenic cirrhosis s/p TIPS procedure (12/02/22), esophageal varices, thrombocytopenia, T2DM, HTN, gastroparesis admitted for hepatic encephalopathy and to rule out infection. This am: This morning patient AAOx4, expresses understanding of his disease and importance of lactulose. Has not had a bowel movement yet. Denies HEWITT, vision changes, chest pain, palpitations, SOB, N/V/D, LE swelling. Review of Systems Review of Systems: reviewed, see HPI Physical Exam Physical Exam: General: patient resting comfortably, NAD, non-toxic in appearance, AA&O x 4, answers questions appropriately and follows commands. Skin: warm, dry, intact HEENT: NC/AT, anicteric sclera, conjunctiva without injection, moist mucus membranes, trachea midline, no thyromegaly, no JVD Heart: +S1/S2, regular, no m/r/g Lungs: equal air entry bilaterally, no rales/rhonchi/wheezes Abd: +BS, soft, NT/ND, no masses/organomegaly/ascites Ext: warm, no clubbing/cyanosis or edema Neuro: nonfocal, patient AA&O x 4, speech intact, no facial droop, moving all extremities on command. Results & Data Results & Data Vital Signs (Past 12 Hours) Vital Signs Temp Pulse Pulse Resp BP BP Pulse Ox 12/12/22 03:39 85 12/12/22 02:51 36.7 C 96 H 18 134/75 97 12/12/22 01:25 84 12/12/22 01:21 84 20 149/74 H 99 12/11/22 23:58 85 20 124/74 100 12/11/22 22:30 83 20 100 12/11/22 21:35 84 12/11/22 21:12 36.8 C 92 H 20 115/71 100 O2 Del Method 12/12/22 03:39 12/12/22 02:51 Room Air 12/12/22 01:25 12/12/22 01:21 Room Air 12/11/22 23:58 Room Air 12/11/22 22:30 Room Air 12/11/22 21:35 12/11/22 21:12 Room Air Resident Activity Tracking Resident Involvement: Resident Care Provided Care Provided: Adult Hospital Medicine (7) Esophageal varices Esophageal varices bleeding: with bleeding Esophageal varices type: secondary Qualified Code(s): I85.11 - Secondary esophageal varices with bleeding
--- NOTE | 2022-12-12 07:48 | CT Scan Report ---
ABDOMEN AND PELVIS CT WITH IV CONTRAST CT DOSE: 1273.16 mGy.cm HISTORY: Acute generalized abdominal pain with prior TIPS post tips procedure TECHNIQUE: Multiaxial CT images of the abdomen and pelvis were performed following the IV administrat ion of 93 cc of Optiray, A dose lowering technique was utilized adhering to the principles of ALARA. COMPARISON STUDY: 05/19/2021 FINDINGS: Coronary artery calcifications. Clear lung bases. No free air. The spleen is enlarged measu ring up to 22 cm, similar to prior. Unremarkable pancreas and adrenal glands. Cholelithiasis with mil d nonspecific gallbladder wall thickening. Cirrhotic liver with decreased ascites compared to the addy or. No hepatic mass identified. Status post placement of a TIPS. There is extensive portal vein throm bosis involving the main portal vein, left and right hepatic lobe branches. Additional thrombus withi n the splenic vein. There may also be thrombus within the hepatic veins. Unremarkable kidneys. No hydronephrosis. 1.1 cm cyst within the superior pole right kidney. Nonspecif ic urinary bladder wall thickening. Mild prostatomegaly. No abdominal aortic aneurysm or lymphadenopa thy. Distal esophageal wall thickening with esophageal varicosities. Abdominal varicosities. Nonspeci fic circumferential rectal wall thickening with prominence of the perirectal vasculature. Moderate fe roberto retention. Normal appendix. No acute fracture. IMPRESSION: 1. Cirrhosis with evidence of portal venous hypertension including splenomegaly with abdominal varico sities. 2. A TIPS has been placed in the interval. There is extensive likely acute thrombus within the portal vein with additional thrombus also present within the splenic and hepatic veins. 3. Nonspecific circumferential wall thickening of the rectum. Findings could be correlated with colon oscopy. 4. No bowel obstruction. 5. Additional findings as above. ACT 112: Negative or not required by law. The above report was generated using voice recognition software. It may contain grammatical, syntax o r spelling errors. Electronically signed by: Alvaro Garcia M.D. 12/12/2022 7:46 AM
[2022-12-12 08:27] LABS: Albumin Level 3.6 gm/dl (3.4-5.0); BUN Creatinine Ratio 18.2 (10-20); Bilirubin,Total 2.8 mg/dl (0.2-1.0); Calcium 8.8 mg/dl (8.6-10.3); Creatinine Clr Calc Pharmacy 194.9 ml/min; Est GFR (African American) 144.8 ml/min; Globulin 3.6 gm/dl (2.5-4.0); Potassium 3.8 mmol/L (3.5-5.1); Total Protein 7.2 gm/dl (6.0-8.3)
[2022-12-12] MEDS ORDERED: ENOXAPARIN INJ 40 MG/0.4 ML SYR SQ SCH (09:00)
[2022-12-12] MEDS: INSULIN ASPART PER UNIT CHARGE SC SCH ×4 (09:02→20:34)
[2022-12-12] MEDS: LACTULOSE SYRUP 30 GM/45 ML UDP PO SCH ×3 (09:08→20:35)
[2022-12-12] MEDS: LOSARTAN POTASSIUM 25 MG TAB PO SCH (09:09)
[2022-12-12] MEDS: TOCOPHERYL, DL-ALPHA 400 UNITS 180 MG CAP PO SCH (09:09)
[2022-12-12] MEDS: SPIRONOLACTONE 25 MG TAB PO SCH (09:09)
[2022-12-12] MEDS: FUROSEMIDE 20 MG TAB PO SCH (09:09)
[2022-12-12] MEDS: CHOLECALCIFEROL 1,000 UNITS 25 MCG TAB PO SCH (09:09)
--- NOTE | 2022-12-12 18:33 | Billing Data ---
Date of Service December 12, 2022 Coding Level of Care Code 92323 SUB INP/OBS CARE MIN
[2022-12-12 18:35] LABS: Amphetamines+Metham, Urine Neg (Neg); Barbiturates, Urine Neg (Neg); Benzodiazepine, Urine Neg (Neg); Cocaine, Urine Neg (Neg); MDMA (Ecstacy), Urine Neg (Neg); Methadone, Urine Neg (Neg); Opiate, Urine Neg (Neg); Phencyclidine, Urine Neg (Neg)
[2022-12-12] MEDS: PANTOprazole 40 MG TAB PO SCH (20:35)
--- NOTE | 2022-12-13 07:41 | Hospitalist Progress Note ---
Date of Service December 13, 2022 Assessment & Plan Admission and Anticipated Discharge Date Admission Date: December 12, 2022 Subjective Pt is a [] yo [] with a past medical history of [] who presents to the hospital on [] for []. 47 yo male PMHx Cryptogenic cirrhosis s/p TIPS procedure (12/02/22), esophageal varices, thrombocytopenia, T2DM, HTN, gastroparesis admitted for hepatic encephalopathy and to rule out infection. Review of Systems Review of Systems: Constitutional: denies fever, chills, [] HEENT: denies congestion, sore throat Cardio: denies chest pain, palpitations Resp: denies shortness of breath, cough GI: denies abdominal pain, nausea, vomiting, constipation, diarrhea : denies pain with urination, change in urinary frequency Neuro: denies new numbness, tingling, weakness Physical Exam Physical Exam: General:Alert and oriented, no acute distress, [] HEENT: Normocephalic, moist oral mucosa, Cardio: Regular rate and rhythm, no murmur, Resp:Lungs clear to auscultation b/l, no wheezes or rhonchi, GI: Soft and nontender, nondistended, bowel sounds active Skin: Warm, pink, dry, Psych: Mood-affect congruence. Results & Data Results & Data Vital Signs (Past 12 Hours) Vital Signs Temp Pulse Resp BP Pulse Ox O2 Del Method 12/13/22 07:40 37.0 C 79 18 129/77 98 Room Air 12/13/22 00:00 37.0 C 84 18 127/72 99 Room Air
[2022-12-13] MEDS: PANTOprazole 40 MG TAB PO SCH (08:34)
[2022-12-13] MEDS: TOCOPHERYL, DL-ALPHA 400 UNITS 180 MG CAP PO SCH (08:34)
[2022-12-13] MEDS: LACTULOSE SYRUP 30 GM/45 ML UDP PO SCH ×2 (08:34→13:00)
[2022-12-13] MEDS: SPIRONOLACTONE 25 MG TAB PO SCH (08:34)
[2022-12-13] MEDS: FUROSEMIDE 20 MG TAB PO SCH (08:34)
[2022-12-13] MEDS: LOSARTAN POTASSIUM 25 MG TAB PO SCH (08:34)
[2022-12-13] MEDS: CHOLECALCIFEROL 1,000 UNITS 25 MCG TAB PO SCH (08:34)
[2022-12-13] MEDS: INSULIN ASPART PER UNIT CHARGE SC SCH ×2 (08:38→12:59)
[2022-12-13] MEDS ORDERED: GLIMEPIRIDE 2 MG TAB PO SCH (09:00)
[2022-12-13] MEDS ORDERED: MULTIVITAMIN TAB PO SCH (09:00)
--- NOTE | 2022-12-13 12:37 | Discharge Summary ---
Date of Service December 13, 2022 Admission HPI Per Admitting Provider 47 YOM with medical history of: DMII, HTN, Gastroparesis, Cryptogenic Cirrhosis, Esophageal Varices, Thrombocytopenia, DMII. Patient presents to the EMD today for 1 day history of alteration in mentation in the setting of post TIPS procedure on 12/02/22. Patient is accompanied by his and mother. and patient state that he has felt increasingly tired today, and slower to respond and perform tasks. He reports that he has not had a bowel movement today, but denies any abdominal pain. Denies headache or visual changes. Reports eating and drinking well. The did call their Environmental Issues Instructor office and was directed to come to the EMD for concern of occult infection. In the EMD the patient had routine labs performed, blood cultures, and UA obtained, chest x- ray, and CT scan of his head performed. His head was negative for any cerebral edema or acute changes. His CXR was without opacifications. Labs were notable for Ammonia level of 118, lactate of 4.9. His INR is stable at 1.2, NA level at 129, Platelets at his baseline 49. Patient case was requested to be discussed with EMD and Environmental Issues Instructor at [facility] regarding ammonia level increase following TIPS procedure. It was felt patient can be followed here and if refractory Hepatic Encephalopathy and refractory ammonia level then let [facility] Hepatology now. His Environmental Issues Instructor is: Dr. Gutierrez at [facility] Patient is FULL CODE Admission Exam Per Admitting Provider PHYSICAL EXAM: General: Sleepy, appropriate, slow to respond Head: Normocephalic, atraumatic ENT: PERRL, EOMI, no nystagmus, no icterus, no pharyngeal exudate, mucous membranes moist Neuro: AAO x 3, speech clear and appropriate, strength intact bilaterally 5/5, sensation intact and equal all extremities and dermatomes, no pronator drift, no asterixis Chest: equal rise and fall of the chest, no accessory muscle use, no heaves or thrills, Clear to auscultation, on room air, Cardiac: Regular rate and rhythm, telemetry reviewed, skin warm dry, cap refill <3 seconds, peripheral pulses +2 no JVD, no murmur, no edema GI: NABS x 4 quadrants, soft, nontender to palpation, no rebound, guarding or tenderness, no ascites : Spontaneously voiding, no pain, no CVA tenderness, Psych: Normal mood and affect Skin: no rash or erythema Principal Diagnosis 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 Discharge Exam General: Alert, oriented x4, no acute distress HEENT: Nontraumatic Cardio: Regular rate and rhythm Lungs: CTA b/l, no wheezes Abd: Small fluid wave, soft and nontender Ext: No edema Skin: Sikes, warm, dry Neuro: No focal deficits Discharge Data Allergies Allergy/AdvReac Type Severity Reaction Status Date / Time ferric derisomaltose Allergy Severe Difficulty Verified 12/11/22 23:30 [From Monoferric] Breathing Consultations 12/12/22 02:10 ED Decision to Admit Stat Ordered Studies 12/11/22 22:22 CT head/brain wo con Stat 12/12/22 02:25 CT Abd and Pelvis [CT abd pelvis IV con only] Routine Hospital Course (1) Acute hepatic encephalopathy: Now resolved, pt oriented x4 today and feels well Pt has hx of cryogenic liver cirrhosis Ammonia 118 @ admission - given Lactulose 30g TID Admission CT head w/o suggestion of acute process Blood culture negative Extended tox screen negative for all but marijuana (THC), hepatitis panel pending Pt will be D/C'ed to home with lactulose 20 mg TID and will f/u with Dr. Astorga on Tuesday (12/15/2022) at 9:05am. (2) Cryptogenic cirrhosis of liver: Status post TIPS on 12/02 Continue to f/u with Dr. Matt RUVALCABA of [facility] (3) Hypertension: Stable, Continue lasix and spironolactone (4) DM II (diabetes mellitus, type II), controlled: Stable, Restart home metformin and glimepiride after discharge F/u with PCP Total Time Total Time Spent Total Time Spent (In Minutes): As per attending attestation. 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 You were treated with lactulose to help remove ammonia from your body. Your symptoms have improved, and we feel it is safe for you to return home. Medications: Your medication list has been reviewed and reconciled upon discharge to ensure accuracy and continuity of care. An updated list of all your medications is included with your hospital discharge paperwork. Please review this list closely, and make note of any changes. We sent a new medication called lactulose to your pharmacy. Take lactulose 20 mg TID (three times a day). While taking lactulose, you may notice that you have more bowel movements. You should aim to have 3-4 bowel movements a day. If you have 2 or less bowel movements, take 1 additional dose of 15 mg lactulose. If you have more than 6 bowel movements in one day, skip 1 dose of lactulose. If you have any issues filling these prescriptions, please call [phone] and ask to leave a message for Dr. Alonzo Take your medications as instructed; do not skip a dose of your medicines. Make sure all of your doctors know every medicine you are taking (including [id number]-[id number] medicines, vitamins, and supplements). Call your primary care provider before taking any new medicines (including over- the-counter medicines, vitamins, and supplements), because some of these may interact with your current medications, or may make your symptoms worse. Tell your primary care provider if you cannot afford your medications. Follow-up appointments: Make an appointment with your primary care physician by the end of this week. A copy of this summary will be sent to them. Every time you see your primary care physician, or any other doctor, bring your medication list, a list of questions, and your recent weights. CONTACT YOUR PRIMARY CARE PROVIDER if you experience any of the following: Shortness of breath or difficulty breathing Swelling of your feet, ankles, hands or abdomen Feeling tired with normal activity or experiencing dizziness or fainting Difficulty following your treatment plan, or difficulty taking medications CALL 911 OR GO TO THE EMERGENCY DEPARTMENT if you experience any of the following: Severe abdominal pain or nausea/vomiting Severe chest pain, or chest pain that radiates (moves) to your jaw or arm Sudden, severe shortness of breath or difficulty breathing Thank you for allowing us to participate in your care. Pending Studies at Discharge: No Stand-Alone Forms: My [facility] [place], Smoking Cessation Medications and DC Order Prescriptions: New lactulose 20 gram/30 mL solution 20 g PO TID 10 Days Qty: 900 1RF Continued glimepiride 2 mg tablet 2 mg PO QAM pantoprazole 40 mg tablet,delayed release (DR/EC) 40 mg PO BID metformin 500 mg tablet 1,000 mg PO BID furosemide 20 mg tablet 20 mg PO DAILY spironolactone 50 mg tablet 50 mg PO QAM metoclopramide HCl [Reglan] 5 mg tablet 5 mg PO TID PRN (Reason: nausea and vomiting) Qty: 20 0RF multivitamin Tablet 1 tab PO DAILY vitamin E 268 mg (400 unit) Capsule 268 mg PO QAM cholecalciferol (vitamin D3) [Vitamin D3] 50 mcg (2,000 unit) Tablet 50 mcg PO QAM losartan 25 mg tablet 25 mg PO QAM Discharge Orders: Discharge Order (Routine); Ordered 12/13/22 Ordered By: Halle Alonzo Admission Data Admit Date/Time: 12/12/22 01:18 Attending Provider: Lior Prince Admit Provider: Eleazar Aguilera Primary Care Provider: Rosey Hu Other Providers: Eleazar Aguilera Other Interventions: Discharge Summary Assessment (RN) Last Done: 12/13/22 13:05 Supervising Physician Co-Signing Physician Notes Attending attestation Pt seen and examined in concert with Dr. Alonzo. In agreement with the documented findings as noted in the resident documentation with any exceptions or additions as noted here. Resting comfortably in bed with mentation at baseline and AAOx3. Stooling 6+ times per day on current lactulose use. On examination, S1/S2 nl RRR no MCG. CTAB. Abd NT/ND BS+ve Acute hepatic encephalopathy with pancytopenia in the setting of cryptogenic cirrhosis s/p TIPS - adjust lactulose to ~4 BM per day with close follow up with GI and PCP Else see resident documentation as noted. Total attending physician time spent with this patient's care on the day of discharge: 40 minutes. Resident Activity Tracking Resident Involvement: Resident Care Provided Care Provided: Adult Hospital Medicine
[2022-12-15 09:02] LABS: Marijuana Quant, GCMS Urine 188 ng/mL (<5)
== END 2022-12-13 14:21 | disposition home or self-care (01) | DRG 441 ==
LOC: ED 21:05 → INTOOBSV 12-12 01:18 → SUATTDRO 12-12 01:18 → 2N 12-12 01:18